=== PATIENT | male | born 1970 | race American Indian/Alaskan Native ===

== ENCOUNTER 2021-04-22 14:42 | Inpatient (IN) | payer OTHER ==
--- NOTE | 2021-04-22 17:51 | Event Note ---
ED Screening Note Date of service: 04/22/21 Time: 17:44 ED Screening Note: Patient presents to the ER today with complaints of left upper extremity weakness, dizziness and feeling off balance, and feels like he about to pass out when he stands up to walk and slurred speech. Onset of symptoms was 3 days ago. Patient states that he did come 3 days ago because he thought that the symptoms would go away. He denies any pain. Past medical history significant only for hypertension. 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 Patient out of the window to call code stroke, he will need a stroke work-up. Dr Arroyo and Dr [place] notified. This initial assessment/diagnostic orders/clinical plan/treatment(s) is/are subject to change based on patients health status, clinical progression and re- assessment by fellow clinical providers in the ED. Further treatment and workup at subsequent clinical providers discretion. Patient/guardian urged not to elope from the ED as their condition may be serious if not clinically assessed and managed. Initial orders include: Stroke work-up
[2021-04-22 18:23] LABS: Basophils % (Auto) 0.5 % (0.0-1.8); Eosinophils % (Auto) 0.3 % (0.0-4.3); Hematocrit 49.1 % (35.5-45.6); Hemoglobin 17.2 gm/dl (11.8-15.2); Lymphocytes # (Auto) 1.1 K/mm3 (1.2-5.4); Lymphocytes % (Auto) 25.6 % (13.4-35.0); Mean Corpuscular HGB Conc 35 % (32-34); Mean Corpuscular Volume 89 fl (84-94); Monocytes # (Auto) 0.3 K/mm3 (0.0-0.8); Monocytes % (Auto) 6.7 % (0.0-7.3); Platelet Count 185 K/mm3 (140-440); Red Blood Count 5.54 M/mm3 (3.65-5.03); Red Cell Distribution Width 14.1 % (13.2-15.2)
[2021-04-22 18:32] LABS: Creatine Kinase MB 5.4 ng/mL (0.0-4.0)
[2021-04-22 18:34] LABS: Alanine Aminotransferase 14 units/L (7-56); Albumin 4.4 g/dL (3.9-5); BUN/Creatinine Ratio 15; Blood Urea Nitrogen 15 mg/dL (9-20); Calcium 9.8 mg/dL (8.4-10.2); Hemolysis Index 10
[2021-04-22 18:42] LABS: INR 0.92 (0.87-1.13)
[2021-04-22 18:43] LABS: Partial Thromboplastin Time 29.1 Sec. (24.2-36.6); Thrombin Time 18.4 Sec. (15.1-19.6)
--- NOTE | 2021-04-22 18:54 | Cat Scan Report ---
CT head/brain wo con INDICATION / CLINICAL INFORMATION: 51 years Male; Stroke symptoms. TECHNIQUE: Routine CT head without contrast. All CT scans at this location are performed using CT dos e reduction for ALARA by means of automated exposure control. COMPARISON: None. FINDINGS: BRAIN / INTRACRANIAL CONTENTS: The motion degrades the image quality. However, there appears be mild cerebral white matter disease most notably involving the periventricular regions and most consistent with microvascular angiopathy. The decreased attenuation projected along the right paramedian natasha ma y be related to beam hardening artifact or degree of motion though correlation would be needed given the history of unspecified "stroke symptoms". The ventricular system is appropriate in size and configuration. There is relative uniform increased attenuation within the vascular structures which may reflect hemoconcentration. There is no clear CT evidence of acute intracranial hemorrhage or significant mass effect. ORBITS: No significant abnormality of visualized orbits. SINUSES / MASTOIDS: No significant abnormality in the visualized paranasal sinuses or mastoid air chinmay ls. CRANIOCERVICAL JUNCTION: No significant abnormality. ADDITIONAL FINDINGS: None. IMPRESSION: 1. There is microvascular angiopathy as detailed above without clear CT evidence of acute intracrania l hemorrhage. Signer Name: Roosevelt Huntley MD Signed: 04/22/2021 6:49 PM Workstation Name: [id number]
[2021-04-22] MEDS ORDERED: ASPIRIN 325 MG TAB PO ONE (23:42)
--- NOTE | 2021-04-23 00:22 | Emergency Department Report ---
ED Neuro Deficit HPI - General Chief Complaint: Neuro Symptoms/Deficit Stated Complaint: NUMBNESS ON LEFT SIDE Time Seen by Provider: 04/22/21 23:36 Source: patient Mode of arrival: Ambulatory Limitations: No Limitations - History of Present Illness Initial Comments: Patient is a 51-year-old F [place] male with past medical history hypertension who is presenting with 3 days of stroke symptoms. Patient states he first noted some difficulty speaking and weakness in his left arm 3 days ago. Patient states he did not come to the hospital because he was hoping the symptoms would go away. Denies chest pain shortness of breath fevers chills nausea vomiting cough cold or congestion. - Related Data Home Medications: Home Medications Medication Instructions Recorded Confirmed Last Taken amLODIPine [Norvasc] 5 mg PO DAILY 04/23/21 04/23/21 Unknown minoxidiL [Loniten] 10 mg PO BID 04/23/21 04/23/21 Unknown Allergies/Adverse Reactions: Allergies Allergy/AdvReac Type Severity Reaction Status Date / Time No Known Allergies Allergy Unverified 04/22/21 17:44 ED Review of Systems ROS: Stated complaint: NUMBNESS ON LEFT SIDE Other details as noted in HPI Comment: All other systems reviewed and negative ED Past Medical Hx - Past Medical History Previous Medical History?: Yes Hx Heart Attack/AMI: Yes - Surgical History Past Surgical History?: No Additional Surgical History: denies - Medications Home Medications: Home Medications Medication Instructions Recorded Confirmed Last Taken Type amLODIPine [Norvasc] 5 mg PO DAILY 04/23/21 04/23/21 Unknown History minoxidiL [Loniten] 10 mg PO BID 04/23/21 04/23/21 Unknown History ED Neuro Physical Exam - General Limitations: No Limitations General appearance: alert, in no apparent distress Suspected Stroke: Yes - Head Head exam: Present: atraumatic, normocephalic - Eye Eye exam: Present: normal appearance, PERRL, EOMI - ENT ENT exam: Present: mucous membranes moist - Neck Neck exam: Present: normal inspection - Respiratory Respiratory exam: Present: normal lung sounds bilaterally. Absent: respiratory distress, wheezes, rales, rhonchi - Cardiovascular Cardiovascular Exam: Present: regular rate, normal rhythm, normal heart sounds. Absent: systolic murmur, diastolic murmur, rubs, gallop - GI/Abdominal GI/Abdominal exam: Present: soft, normal bowel sounds. Absent: distended, tenderness, guarding, rebound (Letter now improved.) - Rectal Rectal exam: Present: deferred - Extremities Exam Extremities exam: Present: normal inspection - Back Exam Back exam: Present: normal inspection - Neurological Exam Neurological exam: Present: alert, oriented X3, CN II-XII intact - NIHSS Assessment Interval: Baseline 1a. Level of Consciousness: alert/keenly responsive 1b. LOC Questions: answers both correctly 1c. LOC Commands: performs tasks correctly 2. Best Gaze: normal 3. Visual: no visual loss 4. Facial Palsy: normal symmetrical movement 5b. Motor Arm Right: no drift 5a. Motor Arm Left: drift 6a. Motor Leg Left: no drift 6b. Motor Leg Right: no drift 7. Limb Ataxia: absent 8. Sensory: normal 9. Best Language: mild/moderate aphasia 10. Dysarthria: mild/moderate dysarthria 11. Extinction/Inattention: no abnormality Total Score: 3 Stroke Severity: Minor Stroke - Psychiatric Psychiatric exam: Present: normal affect, normal mood - Skin Skin exam: Present: warm, dry, intact, normal color. Absent: rash ED Course Vital Signs 04/22/21 04/22/21 04/23/21 17:40 23:56 00:22 Temperature 98.1 F 98.1 F Pulse Rate 91 H 80 80 Respiratory 18 20 Rate Blood Pressure 196/118 212/126 Blood Pressure 212/126 [Right] O2 Sat by Pulse 98 97 Oximetry 04/23/21 04/23/21 00:29 00:30 Temperature Pulse Rate 78 80 Respiratory 12 16 Rate Blood Pressure Blood Pressure [Right] O2 Sat by Pulse 97 97 Oximetry - Reevaluation(s) Reevaluation #1: 04/23/21 00:21 Patient states he has been compliant with his blood pressure regimen however blood pressure was elevated on arrival. By time the patient was able to be placed in a room systolic was greater than 200. Given labetalol. Also start the patient on aspirin therapy. - Lab Data Result diagrams: 04/22/21 18:01 04/22/21 18:01 Lab Results 04/22/21 04/22/21 04/22/21 Range/Units 17:43 18:01 18:01 WBC 4.5 (4.5-11.0) K/mm3 RBC 5.54 H (3.65-5.03) M/mm3 Hgb 17.2 H (11.8-15.2) gm/dl Hct 49.1 H (35.5-45.6) % MCV 89 (84-94) fl MCH 31 (28-32) pg MCHC 35 H (32-34) % RDW 14.1 (13.2-15.2) % Plt Count 185 (140-440) K/mm3 Lymph % (Auto) 25.6 (13.4-35.0) % Vigo % (Auto) 6.7 (0.0-7.3) % Eos % (Auto) 0.3 (0.0-4.3) % Baso % (Auto) 0.5 (0.0-1.8) % Lymph # (Auto) 1.1 L (1.2-5.4) K/mm3 Vigo # (Auto) 0.3 (0.0-0.8) K/mm3 Eos # (Auto) 0.0 (0.0-0.4) K/mm3 Baso # (Auto) 0.0 (0.0-0.1) K/mm3 Seg Neutrophils % 66.9 (40.0-70.0) % Seg Neutrophils # 3.0 (1.8-7.7) K/mm3 PT 13.0 (12.2-14.9) Sec. INR 0.92 (0.87-1.13) APTT 29.1 (24.2-36.6) Sec. Thrombin Time 18.4 (15.1-19.6) Sec. Sodium (137-145) mmol/L Potassium (3.6-5.0) mmol/L Chloride (98-107) mmol/L Carbon Dioxide (22-30) mmol/L Anion Gap mmol/L BUN (9-20) mg/dL Creatinine (0.8-1.3) mg/dL Estimated GFR ml/min BUN/Creatinine Ratio % Glucose (75-100) mg/dL POC Glucose 89 (70-105) mg/dL Calcium (8.4-10.2) mg/dL Total Bilirubin (0.1-1.2) mg/dL AST (5-40) units/L ALT (7-56) units/L Alkaline Phosphatase (35-129) units/L Total Creatine Kinase (55-170) units/L CK-MB (CK-2) (0.0-4.0) ng/mL CK-MB (CK-2) Rel Index (0-4) Troponin T (0.00-0.029) ng/mL Total Protein (6.3-8.2) g/dL Albumin (3.9-5) g/dL Albumin/Globulin Ratio % 04/22/ Range/Units 18:01 WBC (4.5-11.0) K/mm3 RBC (3.65-5.03) M/mm3 Hgb (11.8-15.2) gm/dl Hct (35.5-45.6) % MCV (84-94) fl MCH (28-32) pg MCHC (32-34) % RDW (13.2-15.2) % Plt Count (140-440) K/mm3 Lymph % (Auto) (13.4-35.0) % Vigo % (Auto) (0.0-7.3) % Eos % (Auto) (0.0-4.3) % Baso % (Auto) (0.0-1.8) % Lymph # (Auto) (1.2-5.4) K/mm3 Vigo # (Auto) (0.0-0.8) K/mm3 Eos # (Auto) (0.0-0.4) K/mm3 Baso # (Auto) (0.0-0.1) K/mm3 Seg Neutrophils % (40.0-70.0) % Seg Neutrophils # (1.8-7.7) K/mm3 PT (12.2-14.9) Sec. INR (0.87-1.13) APTT (24.2-36.6) Sec. Thrombin Time (15.1-19.6) Sec. Sodium 140 (137-145) mmol/L Potassium 4.1 (3.6-5.0) mmol/L Chloride 103.4 (98-107) mmol/L Carbon Dioxide 29 (22-30) mmol/L Anion Gap 12 mmol/L BUN 15 (9-20) mg/dL Creatinine 1.0 (0.8-1.3) mg/dL Estimated GFR > 60 ml/min BUN/Creatinine Ratio 15 % Glucose 97 (75-100) mg/dL POC Glucose (70-105) mg/dL Calcium 9.8 (8.4-10.2) mg/dL Total Bilirubin 1.00 (0.1-1.2) mg/dL AST 17 (5-40) units/L ALT 14 (7-56) units/L Alkaline Phosphatase 72 (35-129) units/L Total Creatine Kinase 99 (55-170) units/L CK-MB (CK-2) 5.4 H (0.0-4.0) ng/mL CK-MB (CK-2) Rel Index 5.4 H (0-4) Troponin T < 0.010 (0.00-0.029) ng/mL Total Protein 7.3 (6.3-8.2) g/dL Albumin 4.4 (3.9-5) g/dL Albumin/Globulin Ratio 1.5 % - Radiology Data [facility] [address] [place] [address] Cat Scan Report Signed Patient: LEIA ESTEBAN MR#: [id number] 73 : 1970 Acct:[id number] Age/Sex: 51 / M ADM Date: 04/22/21 Loc: ED Attending Dr: Ordering Physician: EDWARDO DANIELS Date of Service: 04/22/21 Procedure(s): CT head/brain wo con Accession Number(s): [id number] cc: EDWARDO DANIELS CT head/brain wo con INDICATION / CLINICAL INFORMATION: 51 years Male; Stroke symptoms. TECHNIQUE: Routine CT head without contrast. All CT scans at this location are performed using CT dose reduction for ALARA by means of automated exposure control. COMPARISON: None. FINDINGS: BRAIN / INTRACRANIAL CONTENTS: The motion degrades the image quality. However, there appears be mild cerebral white matter disease most notably involving the periventricular regions and most consistent with microvascular angiopathy. The decreased attenuation projected along the right paramedian natasha may be related to beam hardening artifact or degree of motion though correlation would be needed given the history of unspecified "stroke symptoms". The ventricular system is appropriate in size and configuration. There is relative uniform increased attenuation within the vascular structures which may reflect hemoconcentration. There is no clear CT evidence of acute intracranial hemorrhage or significant mass effect. ORBITS: No significant abnormality of visualized orbits. SINUSES / MASTOIDS: No significant abnormality in the visualized paranasal sinuses or mastoid air cells. CRANIOCERVICAL JUNCTION: No significant abnormality. ADDITIONAL FINDINGS: None. IMPRESSION: 1. There is microvascular angiopathy as detailed above without clear CT evidence of acute intracranial hemorrhage. Signer Name: Roosevelt Huntley MD Signed: 04/22/2021 6:49 PM Workstation Name: [id number] Transcribed By: MR Dictated By: Roosevelt Huntley MD Electronically Authenticated By: Roosevelt Huntley MD Signed Date/Time: 04/22/21 1849 - Medical Decision Making Walk patient is a 51-year-old F [place] male who is presenting with some difficulty speaking and left arm weakness. Patient also had elevated blood pressure on arrival. Symptoms been present for approximately 3 days and a code stroke was not initiated since he was outside of the window for TPA and thrombolysis. Patient admitted for further evaluation Critical care attestation.: If time is entered above; I have spent that time in minutes in the direct care of this critically ill patient, excluding procedure time. ED Disposition Clinical Impression: CVA (cerebral vascular accident), Hypertensive urgency, malignant Disposition: ADMITTED INPATIENT Is pt being admited?: Yes Does the pt Need Aspirin: No Condition: Stable Time of Disposition: 00:54
[2021-04-23] MEDS ORDERED: MAGNESIUM HYDROXIDE (MOM) ORAL LIQD UDC PO PRN ×2 (01:41)
[2021-04-23] MEDS ORDERED: PROMETHAZINE 25 MG RECT SUPP PR PRN (01:41)
[2021-04-23] MEDS ORDERED: MORPHINE 4 MG/1 ML INJ IV PRN (01:41)
[2021-04-23] MEDS ORDERED: ACETAMINOPHEN 325 MG TAB PO PRN (01:41)
[2021-04-23] MEDS ORDERED: METOCLOPRAMIDE 10 MG TAB PO PRN (01:41)
[2021-04-23] MEDS ORDERED: ONDANSETRON 4 MG/2 ML INJ IV PRN ×2 (01:41)
--- NOTE | 2021-04-23 01:54 | History and Physical Report ---
History of Present Illness Date of examination: 04/23/21 Date of admission: 04/23/2021 Chief complaint: Left arm weakness History of present illness: 51-year-old -French male with known history of hypertension presenting to the emergency room today complaining of weakness on the left and slurred speech over the past 3 days. Denies any headache or dizziness, denies any blurry vision and no diaphoresis. Denies any fever or chills, no chest pain or shortness of breath, no nausea vomiting and no abdominal pain. Patient states that was hoping that his symptoms will disappear and therefore did not bother coming to the hospital for evaluation. He also admits that he has not been quite compliant with his blood pressure medications. Upon arrival in the emergency room today blood pressure was elevated with systolic in the 190s and diastolic in the 80s. He was given some IV labetalol in the emergency room. Work-up today, CT of the head reveals microvascular angiopathy. No clear evidence of acute intracranial hemorrhage. Patient is being admitted for CVA evaluation. Past History Past Medical History: acute HI, hypertension Past Surgical History: No surgical history Social history: alcohol abuse (Drinks alcohol occasionally) Family history: no significant family history Medications and Allergies Allergies Allergy/AdvReac Type Severity Reaction Status Date / Time No Known Allergies Allergy Verified 04/23/21 01:57 Home Medications Medication Instructions Recorded Confirmed Last Taken Type amLODIPine [Norvasc] 5 mg PO DAILY 04/23/21 04/23/21 Unknown History minoxidiL [Loniten] 10 mg PO BID 04/23/21 04/23/21 Unknown History Active Meds: Active Medications Acetaminophen (Acetaminophen 325 Mg Tab) 650 mg PO Q4H PRN PRN Reason: Pain MILD(1-3)/Fever >100.5/MONTIEL Acetaminophen (Acetaminophen 325 Mg Tab) 650 mg PO Q4H PRN PRN Reason: Pain, Mild (1-3) Aspirin (Aspirin 325 Mg Tab) 325 mg PO QDAY LES Atorvastatin Calcium (Atorvastatin 40 Mg Tab) 40 mg PO QHS LES Bisacodyl (Bisacodyl 10 Mg Rect Supp) 10 mg IN QDAY PRN PRN Reason: Constipation Heparin Sodium (Porcine) (Heparin 5,000 Unit/1 Ml Vial) 5,000 unit SUB-Q Q8HR LES Magnesium Hydroxide (Magnesium Hydroxide (Mom) Oral Liqd Udc) 30 ml PO Q4H PRN PRN Reason: Constipation Magnesium Hydroxide (Magnesium Hydroxide (Mom) Oral Liqd Udc) 30 ml PO Q4H PRN PRN Reason: Constipation Metoclopramide HCl (Metoclopramide 10 Mg Tab) 10 mg PO Q6H PRN PRN Reason: Nausea And Vomiting Morphine Sulfate (Morphine 2 Mg/1 Ml Inj) 2 mg IV Q4H PRN PRN Reason: Pain, Moderate (4-6) Morphine Sulfate (Morphine 4 Mg/1 Ml Inj) 4 mg IV Q4H PRN PRN Reason: Pain , Severe (7-10) Ondansetron HCl (Ondansetron 4 Mg/2 Ml Inj) 4 mg IV Q8H PRN PRN Reason: Nausea And Vomiting Ondansetron HCl (Ondansetron 4 Mg/2 Ml Inj) 4 mg IV Q8H PRN PRN Reason: Nausea And Vomiting Promethazine HCl (Promethazine 25 Mg Rect Supp) 25 mg IN Q6H PRN PRN Reason: Nausea And Vomiting Sodium Chloride (Sodium Chloride 0.9% 10 Ml Flush Syringe) 10 ml IV BID LES Sodium Chloride (Sodium Chloride 0.9% 10 Ml Flush Syringe) 10 ml IV PRN PRN PRN Reason: LINE FLUSH Sodium Chloride (Sodium Chloride 0.9% 10 Ml Flush Syringe) 10 ml INJ PRN PRN PRN Reason: LINE FLUSH Review of Systems Constitutional: no fever, no chills Ears, nose, mouth and throat: no nasal congestion, no sore throat Cardiovascular: no chest pain, no palpitations Respiratory: no cough, no shortness of breath Gastrointestinal: no abdominal pain, no nausea, no vomiting, no diarrhea Genitourinary Male: no dysuria, no hematuria, no flank pain, no nocturia Musculoskeletal: no neck pain, no low back pain Integumentary: no rash, no pruritis Neurological: no headaches, no confusion Psychiatric: no anxiety, no depression Endocrine: no polyphagia, no polydipsia, no polyuria, no nocturia Exam - Constitutional Vitals: Temp Pulse Resp BP Pulse Ox 98.1 F 80 16 185/120 97 04/22/21 23:56 04/23/21 01:30 04/23/21 01:30 04/23/21 01:30 04/23/21 01:30 General appearance: Present: no acute distress, well-nourished - EENT Eyes: Present: PERRL, EOM intact. Absent: scleral icterus ENT: hearing intact, clear oral mucosa, dentition normal - Neck Neck: Present: supple, normal ROM - Respiratory Respiratory effort: normal Respiratory: bilateral: CTA - Cardiovascular Rhythm: regular Heart Sounds: Present: S1 & S2. Absent: gallop, systolic murmur, diastolic murmur, rub, click - Extremities Extremities: no ischemia, pulses intact, pulses symmetrical, No edema, Full ROM Peripheral Pulses: within normal limits - Abdominal General gastrointestinal: Present: soft, non-tender, non-distended, normal bowel sounds. Absent: mass - Integumentary Integumentary: Present: clear, warm, dry. Absent: rash - Musculoskeletal Musculoskeletal: left sided weakness (Weakness in the left upper extremity) - Psychiatric Psychiatric: appropriate mood/affect, intact judgment & insight, memory intact, cooperative - Neurologic Neurologic: CNII-XII intact, no focal deficits, moves all extremities, other (Strength in the left upper extremity 2/5, strength in right upper, right lower, left lower extremities 5/5.) HEART Score - HEART Score Troponin: Troponin T < 0.010 ng/mL (0.00-0.029) 04/22/21 18:01 Results - Labs CBC & Chem 7: 04/22/21 18:01 04/22/21 18:01 Labs: Abnormal lab results 04/22/21 04/22/21 Range/Units 18:01 18:01 RBC 5.54 H (3.65-5.03) M/mm3 Hgb 17.2 H (11.8-15.2) gm/dl Hct 49.1 H (35.5-45.6) % MCHC 35 H (32-34) % Lymph # (Auto) 1.1 L (1.2-5.4) K/mm3 CK-MB (CK-2) 5.4 H (0.0-4.0) ng/mL CK-MB (CK-2) Rel Index 5.4 H (0-4) Assessment and Plan - Patient Problems (1) CVA (cerebral vascular accident) Current Visit: Yes Status: Acute Plan to address problem: Patient admitted distant telemetry. We will commence patient on daily aspirin and statin. Patient be scheduled for echocardiogram, carotid Doppler and MRI of the brain. Neurology evaluation requested. (2) Hypertensive urgency, malignant Current Visit: Yes Status: Acute Plan to address problem: We will resume routine home medications and monitor vital signs closely. (3) Noncompliance with medication regimen Current Visit: Yes Status: Acute Plan to address problem: Patient counseled on compliance with medications. (4) DVT prophylaxis Current Visit: Yes Status: Acute Plan to address problem: Patient placed on subcutaneous heparin. (5) Full code status Current Visit: Yes Status: Acute Plan to address problem: Patient is full code.
[2021-04-23] MEDS ORDERED: hydrALAZINE 20 MG/1 ML INJ IV PRN (05:46)
[2021-04-23] MEDS: HEPARIN 5,000 UNIT/1 ML VIAL SUB-Q SCH ×3 (08:00→22:12)
--- NOTE | 2021-04-23 08:47 | Event Note ---
Date: 04/23/21 This is a follow-up from an admission earlier this morning. Patient seen and examined. We will continue to plan as outlined in H&P. Patient reported noncompliance with hypertensive medication for approximately 6 months. Patient reports that he has recently moved to this area and does not have a PCP. On exam, patient with left pronator drift and left upper extremity weakness. Await neurology consultation. Total visit time equals 35 minutes with greater than 50% spent on coordination of care and counseling
--- NOTE | 2021-04-23 09:06 | Consultation ---
History of Present Illness Consult date: 04/23/21 Reason for Consult: Left arm weakness and slurred speech for 3 days History of present illness: Left arm weakness History of present illness: 51-year-old -[place] male with known history of hypertension presenting to the emergency room today complaining of weakness on the left and slurred speech over the past 3 days. Denies any headache or dizziness, denies any blurry vision and no diaphoresis. Denies any fever or chills, no chest pain or shortness of breath, no nausea vomiting and no abdominal pain. Patient states that was hoping that his symptoms will disappear and therefore did not bother coming to the hospital for evaluation. He also admits that he has not been quite compliant with his blood pressure medications take it on PRN basis Upon arrival in the emergency room today blood pressure was elevated with systolic in the 190s and diastolic in the 80s. He was given some IV labetalol in the emergency room. Work-up today, CT of the head reveals microvascular angiopathy. No clear eviden ce of acute intracranial hemorrhage. Patient is being admitted for CVA evaluation. Today BP 216/140 MRI brain is noted Echo is pending Lipid profil is pending Past History Past Medical History: acute PA, hypertension Past Surgical History: No surgical history Social history: alcohol abuse (Drinks alcohol occasionally) Family history: no significant family history Medications and Allergies Allergies Allergy/AdvReac Type Severity Reaction Status Date / Time No Known Allergies Allergy Verified 04/23/21 01:57 Home Medications Medication Instructions Recorded Confirmed Last Taken Type amLODIPine [Norvasc] 5 mg PO DAILY 04/23/21 04/23/21 Unknown History minoxidiL [Loniten] 10 mg PO BID 04/23/21 04/23/21 Unknown History Active Meds: Active Medications Acetaminophen (Acetaminophen 325 Mg Tab) 650 mg PO Q4H PRN PRN Reason: Pain MILD(1-3)/Fever >100.5/MONTIEL Acetaminophen (Acetaminophen 325 Mg Tab) 650 mg PO Q4H PRN PRN Reason: Pain, Mild (1-3) Aspirin (Aspirin 325 Mg Tab) 325 mg PO QDAY LES Atorvastatin Calcium (Atorvastatin 40 Mg Tab) 40 mg PO QHS LES Bisacodyl (Bisacodyl 10 Mg Rect Supp) 10 mg OH QDAY PRN PRN Reason: Constipation Heparin Sodium (Porcine) (Heparin 5,000 Unit/1 Ml Vial) 5,000 unit SUB-Q Q8HR LES Magnesium Hydroxide (Magnesium Hydroxide (Mom) Oral Liqd Udc) 30 ml PO Q4H PRN PRN Reason: Constipation Magnesium Hydroxide (Magnesium Hydroxide (Mom) Oral Liqd Udc) 30 ml PO Q4H PRN PRN Reason: Constipation Metoclopramide HCl (Metoclopramide 10 Mg Tab) 10 mg PO Q6H PRN PRN Reason: Nausea And Vomiting Morphine Sulfate (Morphine 2 Mg/1 Ml Inj) 2 mg IV Q4H PRN PRN Reason: Pain, Moderate (4-6) Morphine Sulfate (Morphine 4 Mg/1 Ml Inj) 4 mg IV Q4H PRN PRN Reason: Pain , Severe (7-10) Ondansetron HCl (Ondansetron 4 Mg/2 Ml Inj) 4 mg IV Q8H PRN PRN Reason: Nausea And Vomiting Ondansetron HCl (Ondansetron 4 Mg/2 Ml Inj) 4 mg IV Q8H PRN PRN Reason: Nausea And Vomiting Promethazine HCl (Promethazine 25 Mg Rect Supp) 25 mg OH Q6H PRN PRN Reason: Nausea And Vomiting Sodium Chloride (Sodium Chloride 0.9% 10 Ml Flush Syringe) 10 ml IV BID LES Sodium Chloride (Sodium Chloride 0.9% 10 Ml Flush Syringe) 10 ml IV PRN PRN PRN Reason: LINE FLUSH Sodium Chloride (Sodium Chloride 0.9% 10 Ml Flush Syringe) 10 ml INJ PRN PRN PRN Reason: LINE FLUSH Review of Systems Constitutional: no fever, no chills Ears, nose, mouth and throat: no nasal congestion, no sore throat Cardiovascular: no chest pain, no palpitations Respiratory: no cough, no shortness of breath Gastrointestinal: no abdominal pain, no nausea, no vomiting, no diarrhea Genitourinary Male: no dysuria, no hematuria, no flank pain, no nocturia Musculoskeletal: no neck pain, no low back pain Integumentary: no rash, no pruritis Neurological: no headaches, no confusion Psychiatric: no anxiety, no depression Endocrine: no polyphagia, no polydipsia, no polyuria, no nocturia Past History Past Medical History: acute PA, hypertension Past Surgical History: No surgical history Social history: alcohol abuse (Drinks alcohol occasionally) Family history: no significant family history Medications and Allergies Allergies Allergy/AdvReac Type Severity Reaction Status Date / Time No Known Allergies Allergy Verified 04/23/21 01:57 Home Medications Medication Instructions Recorded Confirmed Last Taken Type amLODIPine [Norvasc] 5 mg PO DAILY 04/23/21 04/23/21 Unknown History minoxidiL [Loniten] 10 mg PO BID 04/23/21 04/23/21 Unknown History Active Meds: Active Medications Acetaminophen (Acetaminophen 325 Mg Tab) 650 mg PO Q4H PRN PRN Reason: Pain MILD(1-3)/Fever >100.5/MONTIEL Amlodipine Besylate (Amlodipine 5 Mg Tab) 5 mg PO DAILY [facility] Aspirin (Aspirin 325 Mg Tab) 325 mg PO QDAY [facility] Atorvastatin Calcium (Atorvastatin 40 Mg Tab) 40 mg PO QHS [facility] Bisacodyl (Bisacodyl 10 Mg Rect Supp) 10 mg OH QDAY PRN PRN Reason: Constipation Heparin Sodium (Porcine) (Heparin 5,000 Unit/1 Ml Vial) 5,000 unit SUB-Q Q8HR [facility] Last Admin: 04/23/21 08:00 Dose: 5,000 unit Documented by: Hydralazine HCl (Hydralazine 20 Mg/1 Ml Inj) 10 mg IV Q4HR PRN PRN Reason: Blood Pressure Magnesium Hydroxide (Magnesium Hydroxide (Mom) Oral Liqd Udc) 30 ml PO Q4H PRN PRN Reason: Constipation Metoclopramide HCl (Metoclopramide 10 Mg Tab) 10 mg PO Q6H PRN PRN Reason: Nausea And Vomiting Minoxidil (Minoxidil 10 Mg Tab) 10 mg PO BID [facility] Morphine Sulfate (Morphine 2 Mg/1 Ml Inj) 2 mg IV Q4H PRN PRN Reason: Pain, Moderate (4-6) Morphine Sulfate (Morphine 4 Mg/1 Ml Inj) 4 mg IV Q4H PRN PRN Reason: Pain , Severe (7-10) Ondansetron HCl (Ondansetron 4 Mg/2 Ml Inj) 4 mg IV Q8H PRN PRN Reason: Nausea And Vomiting Promethazine HCl (Promethazine 25 Mg Rect Supp) 25 mg OH Q6H PRN PRN Reason: Nausea And Vomiting Sodium Chloride (Sodium Chloride 0.9% 10 Ml Flush Syringe) 10 ml IV BID [facility] Sodium Chloride (Sodium Chloride 0.9% 10 Ml Flush Syringe) 10 ml IV PRN PRN PRN Reason: LINE FLUSH Physical Examination - Vital Signs Vital Signs: Vital Signs Temp Pulse Resp BP Pulse Ox 98.1 F 91 H 18 196/118 98 04/22/21 17:40 04/22/21 17:40 04/22/21 17:40 04/22/21 17:40 04/22/21 17:40 - Constitutional General appearance: comfortable - EENT EENT: Present: PERRL, mucous membranes moist - Respiratory Respiratory: Present: chest non-tender, lungs clear, rhonchi - Cardiovascular Cardiovascular: Present: regular rate, normal S1, normal S2 Extremities: Present: no peripheral edema bilatateraly, no clubbing, cyanosis - Gastrointestinal Gastrointestinal: Present: normoactive bowel sounds - Integumentary Integumentary: Present: normal - Neurologic Cranial nerve examination: PERRL, EOMI, other (left facial droop no visual field deficit) Detailed motor examination: other (right side 4/5 left upper and lower 1-2/5 , planter is equivical on left no sensory deficit ,unable to walk ) - Level of Consciousness 1a. Level of Consciousness: alert/keenly responsive - LOC Questions 1b. LOC Questions: answers both correctly - LOC Command 1c. LOC Commands: performs tasks correctly - Best Gaze 2. Best Gaze: normal - Visual 3. Visual: no visual loss - Facial Palsy 4. Facial Palsy: minor paralysis - Motor Arm 5a. Motor Arm Left: no gravity effort 5b. Motor Arm Right: no drift - Motor Leg 6a. Motor Leg Left: no gravity effort 6b. Motor Leg Right: no drift - Limb Ataxia 7. Limb Ataxia: absent - Sensory 8. Sensory: normal - Best Language 9. Best Language: no aphasia - Dysarthria 10. Dysarthria: normal - Extinction and Inattention 11. Extinction/Inattention: no abnormality - Scoring Total Score: 7 Stroke Severity: Moderate Stroke Results - Laboratory Findings CBC and BMP: 04/22/21 18:01 04/22/21 18:01 Abnormal Lab Findings: Abnormal Labs 04/22/21 04/22/21 18:01 18:01 RBC 5.54 H Hgb 17.2 H Hct 49.1 H MCHC 35 H Lymph # (Auto) 1.1 L CK-MB (CK-2) 5.4 H CK-MB (CK-2) Rel Index 5.4 H Assessment and Plan Assessment and Plan - Patient Problems # CVA (cerebral vascular accident) -This is 51 ys old male with a new onset left side weakness X3days presented to ER for evaluation -pt. is not a candidate for TPA nor thrombectomy -[facility] today#7 -Ct brain is remarkable for angiopathic changes not specific -CTA brain is pending -LDL and A1C are pending -Echo is pending -He is in NSR -BP#216/140 -MRI brain is suggestive of right Aurelio infarct ,with possibility of basilar a. thrombus can not be excluded -telemetry -ASA 325 Plus Plavix 75 mg started -Lipitor 40 mg -PT,ST evaluate -Most likley will need Rehab evaluation. # Hypertensive urgency, malignant -We will resume routine home medications and monitor vital signs closely. -BP<150/80 gradual control # Noncompliance with medication regimen -Patient counseled on compliance with medications. # DVT prophylaxis -Patient placed on subcutaneous heparin. # Full code status -Patient is full code.
--- NOTE | 2021-04-23 09:50 | Magnetic Resonance Report ---
EXAM: MR Head Without Intravenous Contrast CLINICAL HISTORY: Stroke. Slurred speech. TECHNIQUE: Magnetic resonance images of the head/brain without intravenous contrast in multiple planes. COMPARISON: CT head from 04/22/2021. FINDINGS: Brain: Restricted diffusion seen within the right central natasha. Abnormal signal seen in the basilar artery flow void on image 10 of series 4. Periventricular and centrum semiovale T2 white matter hyp erintensities most consistent with sequela of chronic microvascular disease. No hemorrhage. No hydro cephalus. Sinuses and mastoid air cells: Essentially clear. Orbits: No significant abnormality visualized. IMPRESSION: - Acute right central natasha stroke. Abnormal signal in the basilar artery which is concerning for thro mbus given the infarction, although artifact is also possible. Recommend CTA head and neck for furthe r evaluation. I informed nurse who is taking care of this patient via telephone at [phone]. Signer Name: Kal Cook MD Signed: 04/23/2021 9:45 AM Workstation Name: [id number]
[2021-04-23] MEDS: amLODIPine 5 MG TAB PO SCH (10:28)
[2021-04-23] MEDS: ASPIRIN 325 MG TAB PO SCH (10:29)
[2021-04-23] MEDS: MORPHINE 2 MG/1 ML INJ IV PRN (10:29)
[2021-04-23] MEDS: MINOXIDIL 10 MG TAB PO SCH ×2 (10:53→22:11)
--- NOTE | 2021-04-23 12:30 | Vascular Lab Report ---
DUPLEX DOPPLER ULTRASOUND CAROTID, BILATERAL INDICATION / CLINICAL INFORMATION: stroke. COMPARISON: None available. FINDINGS: RIGHT CAROTID: Minimal soft plaque at the carotid bulb - PLAQUE ESTIMATE (%): < 50% - CCA velocity: 122 cm/sec. - ICA peak systolic velocity: 73 cm/sec. - ICA/CCA PSV Ratio: Less than 2 Right Vertebral Artery: Antegrade flow. LEFT CAROTID: No significant atherosclerotic disease - PLAQUE ESTIMATE (%): None. - CCA velocity: 116 cm/sec. - ICA peak systolic velocity: 108 cm/sec. - ICA/CCA PSV Ratio: Less than 2 Left Vertebral Artery: Antegrade flow. IMPRESSION: 1. Right Internal Carotid Artery: Less than 50% diameter stenosis. 2. Left Internal Carotid Artery: Less than 50% diameter stenosis. Velocity criteria are extrapolated from diameter data as defined by the Society of Radiologists in Ul trasound Consensus Conference, Radiology 2003; 229;340-346. NO STENOSIS (NORMAL) - Plaque = none; ICA PSV < 125 cm/sec; ICA/CCA PSV Ratio < 2.0 <50% STENOSIS - Plaque < 50%; ICA PSV < 125 cm/sec; ICA/CCA PSV Ratio < 2.0 50-69% STENOSIS - Plaque > 50%; ICA PSV = 125-230 cm/sec; ICA/CCA PSV Ratio = 2.0-4.0 >70% BUT <100% STENOSIS - Plaque > 50%; ICA PSV > 230 cm/sec; ICA/CCA PSV Ratio > 4.0 NEAR OCCLUSION - Plaque = visible lumen; ICA PSV = high/low/none; ICA/CCA PSV Ratio = variable TOTAL OCCLUSION - Plaque = no lumen; ICA PSV = none; ICA/CCA PSV Ratio = N/A Signer Name: Colt Figueroa Jr, MD Signed: 04/23/2021 12:25 PM Workstation Name: [id number]
[2021-04-23] MEDS: CLOPIDOGREL 75 MG TAB PO SCH (14:37)
--- NOTE | 2021-04-23 15:49 | Cat Scan Report ---
CTA NECK WITH CONTRAST 04/23/2021 INDICATION / CLINICAL INFORMATION: CVA OMNI 350 100 ML. COMPARISON: None. TECHNIQUE: Routine CTA of the neck is performed. 3-D/MIP reformats were postprocessed. Percentage st enosis is determined by direct quantitative measurements of diseased internal carotid artery diameter compared with normal distal internal carotid artery reference segments or by criteria similar to FILOMENA CET where applicable. All CT scans at this location are performed using CT dose reduction for ALARA b y means of automated exposure control. CONTRAST: 100 ml of Omnipaque 350 FINDINGS: Carotid bifurcations: There is no evidence of significant carotid bifurcation stenosis. Some atherosc lerotic irregularity is present at the origin of the internal carotid arteries bilaterally. Carotid arteries: No significant abnormality. Cervical vertebral arteries: No significant abnormality. Aortic arch: No significant abnormality. There is limited opacification of the upper internal jugular vein on the left side. It is unclear whe ther this represents evidence of partial thrombus or is flow/timing related. Depending on details of the clinical circumstances, this could be further evaluated with venous ultrasound, with special atte ntion to the upper cervical internal jugular vein on the left. IMPRESSION: No significant arterial vascular abnormality. Question of filling defect in the upper left internal jugular vein versus flow/timing related joel morse Signer Name: Thom Burgess MD Signed: 04/23/2021 3:44 PM Workstation Name: [id number]
--- NOTE | 2021-04-23 15:52 | Cat Scan Report ---
CTA HEAD WITH CONTRAST 04/23/2021 HISTORY: CVA OMNI 350 100 ML. COMPARISON: None. TECHNIQUE: All CT scans at this location are performed using CT dose reduction for ALARA by means of automated exposure control.. 3-D/MIP reformats postprocessed. Percentage stenosis is determined by d irect quantitative measurements of diseased internal carotid artery diameter compared with normal dis ashley internal carotid artery reference segments or by criteria similar to NASCET where applicable. CONTRAST: 100 ml of Omnipaque 350 FINDINGS: CTA HEAD: Intracranial vertebral arteries: Atherosclerotic irregularity is seen along the course of the vertebr al arteries, more prominently on the left. The left distal vertebral artery is relatively hypoplastic or stenotic on an atherosclerotic basis. Basilar artery: There is no evidence of basilar artery occlusion. However, atherosclerotic narrowing is present in the proximal basilar artery associated with 50-60% stenosis. Posterior cerebral arteries: No significant abnormality. Intracranial internal carotid arteries: No significant abnormality. Anterior cerebral arteries: No significant abnormality. Middle cerebral arteries: No significant abnormality. Dural venous sinuses:Not optimally opacified. No significant abnormality. Additional findings: None. IMPRESSION: 1. Minute basilar artery moderate narrowing. Signer Name: Thom Burgess MD Signed: 04/23/2021 3:47 PM Workstation Name: [id number]
[2021-04-23 16:27] LABS: Chol/HDL Ratio 3.78 %
[2021-04-24] MEDS: HEPARIN 5,000 UNIT/1 ML VIAL SUB-Q SCH ×3 (05:16→22:32)
[2021-04-24 05:54] LABS: Basophils % (Auto) 0.2 % (0.0-1.8); Eosinophils % (Auto) 0.2 % (0.0-4.3); Hematocrit 47.4 % (35.5-45.6); Hemoglobin 16.2 gm/dl (11.8-15.2); Lymphocytes # (Auto) 1.6 K/mm3 (1.2-5.4); Lymphocytes % (Auto) 22.1 % (13.4-35.0); Mean Corpuscular HGB Conc 34 % (32-34); Mean Corpuscular Volume 89 fl (84-94); Monocytes # (Auto) 0.6 K/mm3 (0.0-0.8); Monocytes % (Auto) 8.7 % (0.0-7.3); Platelet Count 185 K/mm3 (140-440); Red Blood Count 5.32 M/mm3 (3.65-5.03); Red Cell Distribution Width 14.4 % (13.2-15.2)
[2021-04-24 06:15] LABS: BUN/Creatinine Ratio 17; Blood Urea Nitrogen 19 mg/dL (9-20); Calcium 9.5 mg/dL (8.4-10.2); Hemolysis Index 8; INR 0.96 (0.87-1.13)
[2021-04-24] MEDS: ACETAMINOPHEN 325 MG TAB PO PRN (08:27)
--- NOTE | 2021-04-24 08:59 | XRay Report ---
CHEST 1 VIEW 04/24/2021 8:38 AM INDICATION / CLINICAL INFORMATION: fever. COMPARISON: None available. FINDINGS: SUPPORT DEVICES: None. HEART / MEDIASTINUM: No significant abnormality. LUNGS / PLEURA: No significant pulmonary or pleural abnormality. No pneumothorax. ADDITIONAL FINDINGS: No significant additional findings. IMPRESSION: 1. No acute findings. Signer Name: Sonu De León MD Signed: 04/24/2021 8:55 AM Workstation Name: [email or web address]
[2021-04-24] MEDS: MINOXIDIL 10 MG TAB PO SCH ×2 (10:32→22:31)
[2021-04-24] MEDS: amLODIPine 5 MG TAB PO SCH (10:32)
[2021-04-24] MEDS: ASPIRIN 325 MG TAB PO SCH (10:32)
[2021-04-24] MEDS: CLOPIDOGREL 75 MG TAB PO SCH (10:33)
--- NOTE | 2021-04-24 11:12 | Progress Note ---
Assessment and Plan Assessment and plan: Acute CVA. Accelerated hypertension. Medical noncompliance 04/24/2021. CT brain is remarkable for angiopathic changes but nonspecific. MRI is suggestive of right pontine infarct with possibility of basilar artery thrombus. Continue Lipitor, aspirin and Plavix per neurology recommendations. Echocardiogram and CTA brain is pending. Await PT/OT/ST evaluations. History Interval history: Patient with left upper extremity weakness. Hospitalist Physical - Constitutional Vitals: Temp Pulse Resp BP Pulse Ox 98.0 F 101 H 20 143/88 97 04/24/21 08:44 04/24/21 10:32 04/24/21 08:44 04/24/21 10:32 04/24/21 09:58 General appearance: Present: no acute distress, well-nourished - EENT Eyes: Present: PERRL, EOM intact ENT: hearing intact, clear oral mucosa, dentition normal - Neck Neck: Present: supple, normal ROM - Respiratory Respiratory effort: normal Respiratory: bilateral: CTA - Cardiovascular Rhythm: regular Heart Sounds: Present: S1 & S2. Absent: gallop, rub - Extremities Extremities: no ischemia, No edema, Full ROM - Abdominal General gastrointestinal: soft, non-tender, non-distended, normal bowel sounds - Integumentary Integumentary: Present: clear, warm, dry - Neurologic Neurologic: CNII-XII intact, moves all extremities HEART Score - HEART Score Troponin: Troponin T < 0.010 ng/mL (0.00-0.029) 04/22/21 18:01 Results - Labs CBC & Chem 7: 04/24/21 04:31 04/24/21 04:31 Labs: Laboratory Last Values WBC 7.1 K/mm3 (4.5-11.0) 04/24/21 04:31 RBC 5.32 M/mm3 (3.65-5.03) H 04/24/21 04:31 Hgb 16.2 gm/dl (11.8-15.2) H 04/24/21 04:31 Hct 47.4 % (35.5-45.6) H 04/24/21 04:31 MCV 89 fl (84-94) 04/24/21 04:31 MCH 30 pg (28-32) 04/24/21 04:31 MCHC 34 % (32-34) 04/24/21 04:31 RDW 14.4 % (13.2-15.2) 04/24/21 04:31 Plt Count 185 K/mm3 (140-440) 04/24/21 04:31 Lymph % (Auto) 22.1 % (13.4-35.0) 04/24/21 04:31 Pike % (Auto) 8.7 % (0.0-7.3) H 04/24/21 04:31 Eos % (Auto) 0.2 % (0.0-4.3) 04/24/21 04:31 Baso % (Auto) 0.2 % (0.0-1.8) 04/24/21 04:31 Lymph # (Auto) 1.6 K/mm3 (1.2-5.4) 04/24/21 04:31 Pike # (Auto) 0.6 K/mm3 (0.0-0.8) 04/24/21 04:31 Eos # (Auto) 0.0 K/mm3 (0.0-0.4) 04/24/21 04:31 Baso # (Auto) 0.0 K/mm3 (0.0-0.1) 04/24/21 04:31 Seg Neutrophils % 68.8 % (40.0-70.0) 04/24/21 04:31 Seg Neutrophils # 4.9 K/mm3 (1.8-7.7) 04/24/21 04:31 PT 13.3 Sec. (12.2-14.9) 04/24/21 04:31 INR 0.96 (0.87-1.13) 04/24/21 04:31 APTT 29.1 Sec. (24.2-36.6) 04/22/21 18:01 Thrombin Time 18.4 Sec. (15.1-19.6) 04/22/21 18:01 Sodium 142 mmol/L (137-145) 04/24/21 04:31 Potassium 3.3 mmol/L (3.6-5.0) L 04/24/21 04:31 Chloride 103.8 mmol/L (98-107) 04/24/21 04:31 Carbon Dioxide 27 mmol/L (22-30) 04/24/21 04:31 Anion Gap 15 mmol/L 04/24/21 04:31 BUN 19 mg/dL (9-20) 04/24/21 04:31 Creatinine 1.1 mg/dL (0.8-1.3) 04/24/21 04:31 Estimated GFR > 60 ml/min 04/24/21 04:31 BUN/Creatinine Ratio 17 % 04/24/21 04:31 Glucose 97 mg/dL (75-100) 04/24/21 04:31 POC Glucose 82 mg/dL (70-105) 04/23/21 12:36 Calcium 9.5 mg/dL (8.4-10.2) 04/24/21 04:31 Total Bilirubin 1.00 mg/dL (0.1-1.2) 04/22/21 18:01 AST 17 units/L (5-40) 04/22/21 18:01 ALT 14 units/L (7-56) 04/22/21 18:01 Alkaline Phosphatase 72 units/L (35-129) 04/22/21 18:01 Total Creatine Kinase 99 units/L (55-170) 04/22/21 18:01 CK-MB (CK-2) 5.4 ng/mL (0.0-4.0) H 04/22/21 18:01 CK-MB (CK-2) Rel Index 5.4 (0-4) H 04/22/21 18:01 Troponin T < 0.010 ng/mL (0.00-0.029) 04/22/21 18:01 Total Protein 7.3 g/dL (6.3-8.2) 04/22/21 18:01 Albumin 4.4 g/dL (3.9-5) 04/22/21 18:01 Albumin/Globulin Ratio 1.5 % 04/22/21 18:01 Triglycerides 157 mg/dL (2-149) H 04/22/21 18:01 Cholesterol 227 mg/dL (50-199) H 04/22/21 18:01 LDL Cholesterol Direct 156 mg/dL (50-130) H 04/22/21 18:01 HDL Cholesterol 60 mg/dL (40-59) H 04/22/21 18:01 Cholesterol/HDL Ratio 3.78 % 04/22/21 18:01 Johansen/IV: Voiding Method Toilet Active Medications - Current Medications Current Medications: Generic Name Dose Route Start Last Admin Trade Name Freq PRN Reason Stop Dose Admin Acetaminophen 650 mg 04/23/21 01:41 04/24/21 08:27 Acetaminophen 325 Mg Tab PO 650 mg Q4H PRN Administration Pain MILD(1-3)/Fever >100.5/MONTIEL Amlodipine Besylate 5 mg 04/23/21 10:00 04/24/21 10:32 Amlodipine 5 Mg Tab PO 5 mg DAILY LES Administration Aspirin 325 mg 04/23/21 10:00 04/24/21 10:32 Aspirin 325 Mg Tab PO 325 mg QDAY LES Administration Atorvastatin Calcium 80 mg 04/24/21 22:00 Atorvastatin 40 Mg Tab PO QHS LES Bisacodyl 10 mg 04/23/21 01:41 Bisacodyl 10 Mg Rect Supp DE QDAY PRN Constipation Clopidogrel Bisulfate 75 mg 04/23/21 14:30 04/24/21 10:33 Clopidogrel 75 Mg Tab PO 75 mg QDAY LES Administration Heparin Sodium (Porcine) 5,000 unit 04/23/21 06:00 04/24/21 05:16 Heparin 5,000 Unit/1 Ml Vial SUB-Q 5,000 unit Q8HR LES Administration Hydralazine HCl 10 mg 04/23/21 05:46 04/23/21 11:45 Hydralazine 20 Mg/1 Ml Inj IV 10 mg Q4HR PRN Administration Blood Pressure Magnesium Hydroxide 30 ml 04/23/21 01:41 Magnesium Hydroxide (Mom) Oral Liqd Udc PO Q4H PRN Constipation Metoclopramide HCl 10 mg 04/23/21 01:41 Metoclopramide 10 Mg Tab PO Q6H PRN Nausea And Vomiting Minoxidil 10 mg 04/23/21 10:00 04/24/21 10:32 Minoxidil 10 Mg Tab PO 10 mg BID LES Administration Morphine Sulfate 2 mg 04/23/21 01:41 04/23/21 10:29 Morphine 2 Mg/1 Ml Inj IV 2 mg Q4H PRN Administration Pain, Moderate (4-6) Morphine Sulfate 4 mg 04/23/21 01:41 04/24/21 10:33 Morphine 4 Mg/1 Ml Inj IV 4 mg Q4H PRN Administration Pain , Severe (7-10) Ondansetron HCl 4 mg 04/23/21 01:41 04/23/21 10:30 Ondansetron 4 Mg/2 Ml Inj IV 4 mg Q8H PRN Administration Nausea And Vomiting Promethazine HCl 25 mg 04/23/21 01:41 Promethazine 25 Mg Rect Supp DE Q6H PRN Nausea And Vomiting Sodium Chloride 10 ml 04/23/21 10:00 04/24/21 10:33 Sodium Chloride 0.9% 10 Ml Flush Syringe IV 10 ml BID LES Administration Sodium Chloride 10 ml 04/23/21 01:41 Sodium Chloride 0.9% 10 Ml Flush Syringe IV PRN PRN LINE FLUSH Nutrition/Malnutrition Assess - Dietary Evaluation Nutrition/Malnutrition Findings: Nutrition Notes Start: 04/23/21 11:34 Freq: Status: Active Protocol: Document 04/23/21 11:34 MELODIE (Rec: 04/23/21 11:35 MELODIE [id number]) Nutrition Notes Need for Assessment generated from: MD Order,Education Initial or Follow up Brief Note Current Diagnosis Hypertension,Stroke Other Pertinent Diagnosis medication noncompliance Current Diet cardiac Subjective/Other Information MD consult for diet education. Pt on hold in ED. Nutrition Intervention Follow-Up By: 04/27/21 Additional Comments F/u: diet edcuation
--- NOTE | 2021-04-24 12:10 | Progress Note ---
Assessment and Plan Assessment and Plan - Patient Problems # CVA (cerebral vascular accident) -This is 51 ys old male with a new onset left side weakness X3days presented to ER for evaluation -pt. is not a candidate for TPA nor thrombectomy -NIH today#7 -Ct brain is remarkable for angiopathic changes not specific -CTA brain and neck is suggestive of mild narrow basilar artery ,no thrombus,with small left vertebral A. -LDL#154 and A1C is pending -Echo is pending -He is in NSR -BP#216/140-- BP is better today 144/74,HR#111 Regular -MRI brain is suggestive of right Aurelio infarct ,with possibility of basilar a. thrombus can not be excluded -telemetry -ASA 325 Plus Plavix 75 mg startedX 21 days then ASA 325 mg daily - Increase Lipitor to 80 mg -PT,ST evaluate -Most likley will need Rehab evaluation. # Hypertensive urgency, malignant -We will resume routine home medications and monitor vital signs closely. -BP<150/80 gradual control # Noncompliance with medication regimen -Patient counseled on compliance with medications. # DVT prophylaxis -Patient placed on subcutaneous heparin. # Full code status -Patient is full code. PLAN 1- As above 2- D/W pt. his findings 3- Suggest compliance with medications 4- rehab. option 5- Follow up with neurology and PCP 6- ASA 325 mg daily X21 days then stop plavix and maintain ASA 325 mg daily Plus Lipitor 80 mg will sign off Subjective Date of service: 04/24/21 Principal diagnosis: CVA with left side weakness Interval history: better today up walking with help left side weakness CTA brain and neck noted LDL#156 Echo is pending Objective - Vital Sign Vital Signs - 12hr 04/24/21 04/24/21 04/24/21 02:45 03:55 08:44 Temperature 101.1 F H 98.0 F Pulse Rate 111 H 101 H Respiratory 18 20 Rate Blood Pressure 144/74 143/88 O2 Sat by Pulse 98 94 97 Oximetry 04/24/21 04/24/21 09:58 10:32 Temperature Pulse Rate 101 H Respiratory Rate Blood Pressure 143/88 O2 Sat by Pulse 97 Oximetry - General Apperance Constitutional: comfortable - EENT EENT: PERRL, mucous membranes moist - Respiratory Respiratory: chest non-tender, lungs clear, rhonchi - Cardiovascular Cardiovascular: regular rate, normal S1, normal S2 Extremities: no peripheral edema bilat, no clubbing, cyanosis - Gastrointestinal Gastrointestinal: normoactive bowel sounds - Integumentary Integumentary: normal - Neurologic Cranial nerve examination: PERRL, EOMI, other (slight left facial drop, no sensory deficit , no visual deficit) Detailed motor examination: other (left upper1/5 ,lower3+/5, gait is unsteady , no sensory deficit) - Laboratory Findings CBC and BMP: 04/24/21 04:31 04/24/21 04:31 Abnormal Lab Findings: Abnormal Labs 04/22/21 04/22/21 04/22/21 18:01 18:01 18:01 RBC 5.54 H Hgb 17.2 H Hct 49.1 H MCHC 35 H [place] % (Auto) Lymph # (Auto) 1.1 L Potassium CK-MB (CK-2) 5.4 H CK-MB (CK-2) Rel Index 5.4 H Triglycerides 157 H Cholesterol 227 H LDL Cholesterol Direct 156 H HDL Cholesterol 60 H 04/24/21 04/24/21 04:31 04:31 RBC 5.32 H Hgb 16.2 H Hct 47.4 H MCHC [place] % (Auto) 8.7 H Lymph # (Auto) Potassium 3.3 L CK-MB (CK-2) CK-MB (CK-2) Rel Index Triglycerides Cholesterol LDL Cholesterol Direct HDL Cholesterol
[2021-04-24 13:06] LABS: Bilirubin,Urine NEG (Negative); Blood,Urine NEG (Negative); Color,Urine Yellow (Yellow); Mucus,Urine 2+ /HPF; Urobilinogen,Urine < 2.0 mg/dL (<2.0)
[2021-04-24] MEDS: MORPHINE 2 MG/1 ML INJ IV PRN (22:31)
[2021-04-25] MEDS: HEPARIN 5,000 UNIT/1 ML VIAL SUB-Q SCH ×3 (07:10→21:56)
--- NOTE | 2021-04-25 09:16 | Progress Note ---
Assessment and Plan Assessment and plan: Acute CVA. Accelerated hypertension. Medical noncompliance 04/24/2021. CT brain is remarkable for angiopathic changes but nonspecific. MRI is suggestive of right pontine infarct with possibility of basilar artery thrombus. Continue Lipitor, aspirin and Plavix per neurology recommendations. Echocardiogram and CTA brain is pending. Await PT/OT/ST evaluations. 04/25/2021. Echocardiogram reveals left ventricular normal size and function. Severe concentric left ventricular hypertrophy. EF 65 to 70%. No reports of thrombus. CTA of head and neck essentially negative. Continue Lipitor, aspirin and Plavix per neurology recommendations. Physical therapy recommends acute rehab History Interval history: Patient with left upper extremity weakness. Hospitalist Physical - Constitutional Vitals: Temp Pulse Resp BP Pulse Ox 98.9 F 96 H 18 137/79 97 04/25/21 08:10 04/25/21 08:10 04/25/21 08:10 04/25/21 08:10 04/25/21 08:10 General appearance: Present: no acute distress, well-nourished - EENT Eyes: Present: PERRL, EOM intact ENT: hearing intact, clear oral mucosa, dentition normal - Neck Neck: Present: supple, normal ROM - Respiratory Respiratory effort: normal Respiratory: bilateral: CTA - Cardiovascular Rhythm: regular Heart Sounds: Present: S1 & S2. Absent: gallop, rub - Extremities Extremities: no ischemia, No edema, Full ROM - Abdominal General gastrointestinal: soft, non-tender, non-distended, normal bowel sounds - Integumentary Integumentary: Present: clear, warm, dry - Neurologic Neurologic: CNII-XII intact, moves all extremities HEART Score - HEART Score Troponin: Troponin T < 0.010 ng/mL (0.00-0.029) 04/22/21 18:01 Results - Labs CBC & Chem 7: 04/24/21 04:31 04/24/21 04:31 Labs: Laboratory Last Values WBC 7.1 K/mm3 (4.5-11.0) 04/24/21 04:31 RBC 5.32 M/mm3 (3.65-5.03) H 04/24/21 04:31 Hgb 16.2 gm/dl (11.8-15.2) H 04/24/21 04:31 Hct 47.4 % (35.5-45.6) H 04/24/21 04:31 MCV 89 fl (84-94) 04/24/21 04:31 MCH 30 pg (28-32) 04/24/21 04:31 MCHC 34 % (32-34) 04/24/21 04:31 RDW 14.4 % (13.2-15.2) 04/24/21 04:31 Plt Count 185 K/mm3 (140-440) 04/24/21 04:31 Lymph % (Auto) 22.1 % (13.4-35.0) 04/24/21 04:31 [place] % (Auto) 8.7 % (0.0-7.3) H 04/24/21 04:31 Eos % (Auto) 0.2 % (0.0-4.3) 04/24/21 04:31 Baso % (Auto) 0.2 % (0.0-1.8) 04/24/21 04:31 Lymph # (Auto) 1.6 K/mm3 (1.2-5.4) 04/24/21 04:31 [place] # (Auto) 0.6 K/mm3 (0.0-0.8) 04/24/21 04:31 Eos # (Auto) 0.0 K/mm3 (0.0-0.4) 04/24/21 04:31 Baso # (Auto) 0.0 K/mm3 (0.0-0.1) 04/24/21 04:31 Seg Neutrophils % 68.8 % (40.0-70.0) 04/24/21 04:31 Seg Neutrophils # 4.9 K/mm3 (1.8-7.7) 04/24/21 04:31 PT 13.3 Sec. (12.2-14.9) 04/24/21 04:31 INR 0.96 (0.87-1.13) 04/24/21 04:31 APTT 29.1 Sec. (24.2-36.6) 04/22/21 18:01 Thrombin Time 18.4 Sec. (15.1-19.6) 04/22/21 18:01 Sodium 142 mmol/L (137-145) 04/24/21 04:31 Potassium 3.3 mmol/L (3.6-5.0) L 04/24/21 04:31 Chloride 103.8 mmol/L (98-107) 04/24/21 04:31 Carbon Dioxide 27 mmol/L (22-30) 04/24/21 04:31 Anion Gap 15 mmol/L 04/24/21 04:31 BUN 19 mg/dL (9-20) 04/24/21 04:31 Creatinine 1.1 mg/dL (0.8-1.3) 04/24/21 04:31 Estimated GFR > 60 ml/min 04/24/21 04:31 BUN/Creatinine Ratio 17 % 04/24/21 04:31 Glucose 97 mg/dL (75-100) 04/24/21 04:31 POC Glucose 91 mg/dL (70-105) 04/25/21 07:52 Calcium 9.5 mg/dL (8.4-10.2) 04/24/21 04:31 Total Bilirubin 1.00 mg/dL (0.1-1.2) 04/22/21 18:01 AST 17 units/L (5-40) 04/22/21 18:01 ALT 14 units/L (7-56) 04/22/21 18:01 Alkaline Phosphatase 72 units/L (35-129) 04/22/21 18:01 Total Creatine Kinase 99 units/L (55-170) 04/22/21 18:01 CK-MB (CK-2) 5.4 ng/mL (0.0-4.0) H 04/22/21 18:01 CK-MB (CK-2) Rel Index 5.4 (0-4) H 04/22/21 18:01 Troponin T < 0.010 ng/mL (0.00-0.029) 04/22/21 18:01 Total Protein 7.3 g/dL (6.3-8.2) 04/22/21 18:01 Albumin 4.4 g/dL (3.9-5) 04/22/21 18:01 Albumin/Globulin Ratio 1.5 % 04/22/21 18:01 Triglycerides 157 mg/dL (2-149) H 04/22/21 18:01 Cholesterol 227 mg/dL (50-199) H 04/22/21 18:01 LDL Cholesterol Direct 156 mg/dL (50-130) H 04/22/21 18:01 HDL Cholesterol 60 mg/dL (40-59) H 04/22/21 18:01 Cholesterol/HDL Ratio 3.78 % 04/22/21 18:01 Urine Color Yellow (Yellow) 04/24/21 12:01 Urine Turbidity Clear (Clear) 04/24/21 12:01 Urine pH 5.0 (5.0-7.0) 04/24/21 12:01 Ur Specific [place] 1.033 (1.003-1.030) H 04/24/21 12:01 Urine Protein 30 mg/dl mg/dL (Negative) 04/24/21 12:01 Urine Glucose (UA) Neg mg/dL (Negative) 04/24/21 12:01 Urine Ketones Tr mg/dL (Negative) 04/24/21 12:01 Urine Blood Neg (Negative) 04/24/21 12:01 Urine Nitrite Neg (Negative) 04/24/21 12:01 Urine Bilirubin Neg (Negative) 04/24/21 12:01 Urine Urobilinogen < 2.0 mg/dL (<2.0) 04/24/21 12:01 Ur Leukocyte Esterase Neg (Negative) 04/24/21 12:01 Urine WBC (Auto) 2.0 /HPF (0.0-6.0) 04/24/21 12:01 Urine RBC (Auto) 2.0 /HPF (0.0-6.0) 04/24/21 12:01 U Epithel Cells (Auto) < 1.0 /HPF (0-13.0) 04/24/21 12:01 Urine Mucus 2+ /HPF 04/24/21 12:01 Johansen/IV: Voiding Method Urinal Active Medications - Current Medications Current Medications: Generic Name Dose Route Start Last Admin Trade Name Freq PRN Reason Stop Dose Admin Acetaminophen 650 mg 04/23/21 01:41 04/24/21 08:27 Acetaminophen 325 Mg Tab PO 650 mg Q4H PRN Administration Pain MILD(1-3)/Fever >100.5/MONTIEL Amlodipine Besylate 5 mg 04/23/21 10:00 04/24/21 10:32 Amlodipine 5 Mg Tab PO 5 mg DAILY LES Administration Aspirin 325 mg 04/23/21 10:00 04/24/21 10:32 Aspirin 325 Mg Tab PO 325 mg QDAY LES Administration Atorvastatin Calcium 80 mg 04/24/21 22:00 04/24/21 22:31 Atorvastatin 40 Mg Tab PO 80 mg QHS LES Administration Bisacodyl 10 mg 04/23/21 01:41 Bisacodyl 10 Mg Rect Supp [place] QDAY PRN Constipation Clopidogrel Bisulfate 75 mg 04/23/21 14:30 04/24/21 10:33 Clopidogrel 75 Mg Tab PO 75 mg QDAY LES Administration Heparin Sodium (Porcine) 5,000 unit 04/23/21 06:00 04/25/21 07:10 Heparin 5,000 Unit/1 Ml Vial SUB-Q 5,000 unit Q8HR LES Administration Hydralazine HCl 10 mg 04/23/21 05:46 04/23/21 11:45 Hydralazine 20 Mg/1 Ml Inj IV 10 mg Q4HR PRN Administration Blood Pressure Magnesium Hydroxide 30 ml 04/23/21 01:41 Magnesium Hydroxide (Mom) Oral Liqd Udc PO Q4H PRN Constipation Metoclopramide HCl 10 mg 04/23/21 01:41 Metoclopramide 10 Mg Tab PO Q6H PRN Nausea And Vomiting Minoxidil 10 mg 04/23/21 10:00 04/24/21 22:31 Minoxidil 10 Mg Tab PO 10 mg BID LES Administration Morphine Sulfate 2 mg 04/23/21 01:41 04/24/21 22:31 Morphine 2 Mg/1 Ml Inj IV 2 mg Q4H PRN Administration Pain, Moderate (4-6) Morphine Sulfate 4 mg 04/23/21 01:41 04/24/21 10:33 Morphine 4 Mg/1 Ml Inj IV 4 mg Q4H PRN Administration Pain , Severe (7-10) Ondansetron HCl 4 mg 04/23/21 01:41 04/23/21 10:30 Ondansetron 4 Mg/2 Ml Inj IV 4 mg Q8H PRN Administration Nausea And Vomiting Promethazine HCl 25 mg 04/23/21 01:41 Promethazine 25 Mg Rect Supp [place] Q6H PRN Nausea And Vomiting Sodium Chloride 10 ml 04/23/21 10:00 04/24/21 22:32 Sodium Chloride 0.9% 10 Ml Flush Syringe IV 10 ml BID LES Administration Sodium Chloride 10 ml 04/23/21 01:41 Sodium Chloride 0.9% 10 Ml Flush Syringe IV PRN PRN LINE FLUSH Nutrition/Malnutrition Assess - Dietary Evaluation Nutrition/Malnutrition Findings: Nutrition Notes Start: 04/23/21 11:34 Freq: Status: Active Protocol: Document 04/23/21 11:34 MELODIE (Rec: 04/23/21 11:35 MELODIE [id number]) Nutrition Notes Need for Assessment generated from: MD Order,Education Initial or Follow up Brief Note Current Diagnosis Hypertension,Stroke Other Pertinent Diagnosis medication noncompliance Current Diet cardiac Subjective/Other Information MD consult for diet education. Pt on hold in ED. Nutrition Intervention Follow-Up By: 04/27/21 Additional Comments F/u: diet edcuation
[2021-04-25] MEDS: ASPIRIN 325 MG TAB PO SCH (11:17)
[2021-04-25] MEDS: MINOXIDIL 10 MG TAB PO SCH ×2 (11:17→21:55)
[2021-04-25] MEDS: amLODIPine 5 MG TAB PO SCH (11:17)
[2021-04-25] MEDS: CLOPIDOGREL 75 MG TAB PO SCH (11:18)
--- NOTE | 2021-04-25 11:32 | Progress Note ---
Assessment and Plan Assessment and Plan - Patient Problems # CVA (cerebral vascular accident) -This is 51 ys old male with a new onset left side weakness X3days presented to ER for evaluation -pt. is not a candidate for TPA nor thrombectomy -NIH today#7 -Ct brain is remarkable for angiopathic changes not specific -CTA brain and neck is suggestive of mild narrow basilar artery ,no thrombus,with small left vertebral A. -LDL#154 and A1C is pending -Echo is pending -He is in NSR -BP#216/140-- BP is better today 144/74,HR#111 Regular -MRI brain is suggestive of right Aurelio infarct ,with possibility of basilar a. thrombus can not be excluded -telemetry -ASA 325 Plus Plavix 75 mg startedX 21 days then ASA 325 mg daily - Increase Lipitor to 80 mg -PT,ST evaluate - Rehab evaluation. -Left hip pain with no limitation -- deg. arthritis-- Do Xry left hip # Hypertensive urgency, malignant -We will resume routine home medications and monitor vital signs closely. -BP<150/80 gradual control # Noncompliance with medication regimen -Patient counseled on compliance with medications. # DVT prophylaxis -Patient placed on subcutaneous heparin. # Full code status -Patient is full code. PLAN 1- As above 2- D/W pt. his findings 3- Suggest compliance with medications 4- rehab. option 5- Follow up with neurology and PCP 6- ASA 325 mg daily X21 days then stop plavix and maintain ASA 325 mg daily Plus Lipitor 80 mg 7- Xry left hip Subjective Date of service: 04/25/21 Principal diagnosis: CVA with left side weakness Interval history: some improvment in left arm and leg weakness able to move arm some what , as well leg Complain of left hip pain left side weakness CTA brain and neck noted LDL#156 Echo left diastolic dysfunction ,EF#65-70% Objective - Vital Sign Vital Signs - 12hr 04/24/21 04/25/21 04/25/21 23:38 01:41 03:56 Temperature 98.8 F 98.6 F Pulse Rate 102 H 91 H Respiratory 17 18 Rate Blood Pressure 150/85 147/86 O2 Sat by Pulse 98 98 96 Oximetry 04/25/21 08:10 Temperature 98.9 F Pulse Rate 96 H Respiratory 18 Rate Blood Pressure 137/79 O2 Sat by Pulse 97 Oximetry - General Apperance Constitutional: comfortable - EENT EENT: PERRL - Respiratory Respiratory: chest non-tender, lungs clear, rhonchi - Cardiovascular Cardiovascular: regular rate, normal S1, normal S2 Extremities: no peripheral edema bilat, no clubbing, cyanosis - Gastrointestinal Gastrointestinal: normoactive bowel sounds - Integumentary Integumentary: normal - Neurologic Cranial nerve examination: PERRL, EOMI, other (slight left facial droop ) Detailed motor examination: other (left upper is 2/5 , left lower 3+/5 ,gait able to ambulate with assistance,) - Laboratory Findings CBC and BMP: 04/24/21 04:31 04/24/21 04:31 Abnormal Lab Findings: Abnormal Labs 04/22/21 04/22/21 04/22/21 18:01 18:01 18:01 RBC 5.54 H Hgb 17.2 H Hct 49.1 H MCHC 35 H [place] % (Auto) Lymph # (Auto) 1.1 L Potassium CK-MB (CK-2) 5.4 H CK-MB (CK-2) Rel Index 5.4 H Triglycerides 157 H Cholesterol 227 H LDL Cholesterol Direct 156 H HDL Cholesterol 60 H Ur Specific [place] 04/24/21 04/24/21 04/24/21 04:31 04:31 12:01 RBC 5.32 H Hgb 16.2 H Hct 47.4 H MCHC [place] % (Auto) 8.7 H Lymph # (Auto) Potassium 3.3 L CK-MB (CK-2) CK-MB (CK-2) Rel Index Triglycerides Cholesterol LDL Cholesterol Direct HDL Cholesterol Ur Specific [place] 1.033 H
--- NOTE | 2021-04-25 13:14 | XRay Report ---
LEFT HIP 2 VIEWS INDICATION / CLINICAL INFORMATION: left hip pain COMPARISON: None available. FINDINGS: BONES and JOINT(S): No acute fracture or subluxation. There is mild osteoarthritis of the hips. SOFT TISSUES: No significant abnormality. ADDITIONAL FINDINGS: None. IMPRESSION: 1. No acute findings. 2. Mild osteoarthritis of the hips. Signer Name: Don Colin MD Signed: 04/25/2021 1:09 PM Workstation Name: [id number]
[2021-04-26] MEDS: HEPARIN 5,000 UNIT/1 ML VIAL SUB-Q SCH ×4 (05:53→21:15)
--- NOTE | 2021-04-26 09:13 | Progress Note ---
Assessment and Plan Assessment and plan: Acute CVA. Accelerated hypertension. Medical noncompliance 04/24/2021. CT brain is remarkable for angiopathic changes but nonspecific. MRI is suggestive of right pontine infarct with possibility of basilar artery thrombus. Continue Lipitor, aspirin and Plavix per neurology recommendations. Echocardiogram and CTA brain is pending. Await PT/OT/ST evaluations. 04/25/2021. Echocardiogram reveals left ventricular normal size and function. Severe concentric left ventricular hypertrophy. EF 65 to 70%. No reports of thrombus. CTA of head and neck essentially negative. Continue Lipitor, aspirin and Plavix per neurology recommendations. Physical therapy recommends acute rehab 04/26/2021. Continue Lipitor, aspirin and Plavix per neurology recommendations. Physical therapy recommends acute rehab. Await placement. Add labetalol for blood pressure control. History Interval history: Patient with left upper extremity weakness. Hospitalist Physical - Constitutional Vitals: Temp Pulse Resp BP Pulse Ox 98.1 F 98 H 16 151/86 93 04/26/21 07:54 04/26/21 07:54 04/26/21 07:54 04/26/21 07:54 04/26/21 07:54 General appearance: Present: no acute distress, well-nourished - EENT Eyes: Present: PERRL, EOM intact ENT: hearing intact, clear oral mucosa, dentition normal - Neck Neck: Present: supple, normal ROM - Respiratory Respiratory effort: normal Respiratory: bilateral: CTA - Cardiovascular Rhythm: regular Heart Sounds: Present: S1 & S2. Absent: gallop, rub - Extremities Extremities: no ischemia, No edema, Full ROM - Abdominal General gastrointestinal: soft, non-tender, non-distended, normal bowel sounds - Integumentary Integumentary: Present: clear, warm, dry - Neurologic Neurologic: CNII-XII intact, moves all extremities HEART Score - HEART Score Troponin: Troponin T < 0.010 ng/mL (0.00-0.029) 04/22/21 18:01 Results - Labs CBC & Chem 7: 04/24/21 04:31 04/24/21 04:31 Labs: Laboratory Last Values WBC 7.1 K/mm3 (4.5-11.0) 04/24/21 04:31 RBC 5.32 M/mm3 (3.65-5.03) H 04/24/21 04:31 Hgb 16.2 gm/dl (11.8-15.2) H 04/24/21 04:31 Hct 47.4 % (35.5-45.6) H 04/24/21 04:31 MCV 89 fl (84-94) 04/24/21 04:31 MCH 30 pg (28-32) 04/24/21 04:31 MCHC 34 % (32-34) 04/24/21 04:31 RDW 14.4 % (13.2-15.2) 04/24/21 04:31 Plt Count 185 K/mm3 (140-440) 04/24/21 04:31 Lymph % (Auto) 22.1 % (13.4-35.0) 04/24/21 04:31 [place] % (Auto) 8.7 % (0.0-7.3) H 04/24/21 04:31 Eos % (Auto) 0.2 % (0.0-4.3) 04/24/21 04:31 Baso % (Auto) 0.2 % (0.0-1.8) 04/24/21 04:31 Lymph # (Auto) 1.6 K/mm3 (1.2-5.4) 04/24/21 04:31 [place] # (Auto) 0.6 K/mm3 (0.0-0.8) 04/24/21 04:31 Eos # (Auto) 0.0 K/mm3 (0.0-0.4) 04/24/21 04:31 Baso # (Auto) 0.0 K/mm3 (0.0-0.1) 04/24/21 04:31 Seg Neutrophils % 68.8 % (40.0-70.0) 04/24/21 04:31 Seg Neutrophils # 4.9 K/mm3 (1.8-7.7) 04/24/21 04:31 PT 13.3 Sec. (12.2-14.9) 04/24/21 04:31 INR 0.96 (0.87-1.13) 04/24/21 04:31 APTT 29.1 Sec. (24.2-36.6) 04/22/21 18:01 Thrombin Time 18.4 Sec. (15.1-19.6) 04/22/21 18:01 Sodium 142 mmol/L (137-145) 04/24/21 04:31 Potassium 3.3 mmol/L (3.6-5.0) L 04/24/21 04:31 Chloride 103.8 mmol/L (98-107) 04/24/21 04:31 Carbon Dioxide 27 mmol/L (22-30) 04/24/21 04:31 Anion Gap 15 mmol/L 04/24/21 04:31 BUN 19 mg/dL (9-20) 04/24/21 04:31 Creatinine 1.1 mg/dL (0.8-1.3) 04/24/21 04:31 Estimated GFR > 60 ml/min 04/24/21 04:31 BUN/Creatinine Ratio 17 % 04/24/21 04:31 Glucose 97 mg/dL (75-100) 04/24/21 04:31 POC Glucose 93 mg/dL (70-105) 04/25/21 15:41 Calcium 9.5 mg/dL (8.4-10.2) 04/24/21 04:31 Total Bilirubin 1.00 mg/dL (0.1-1.2) 04/22/21 18:01 AST 17 units/L (5-40) 04/22/21 18:01 ALT 14 units/L (7-56) 04/22/21 18:01 Alkaline Phosphatase 72 units/L (35-129) 04/22/21 18:01 Total Creatine Kinase 99 units/L (55-170) 04/22/21 18:01 CK-MB (CK-2) 5.4 ng/mL (0.0-4.0) H 04/22/21 18:01 CK-MB (CK-2) Rel Index 5.4 (0-4) H 04/22/21 18:01 Troponin T < 0.010 ng/mL (0.00-0.029) 04/22/21 18:01 Total Protein 7.3 g/dL (6.3-8.2) 04/22/21 18:01 Albumin 4.4 g/dL (3.9-5) 04/22/21 18:01 Albumin/Globulin Ratio 1.5 % 04/22/21 18:01 Triglycerides 157 mg/dL (2-149) H 04/22/21 18:01 Cholesterol 227 mg/dL (50-199) H 04/22/21 18:01 LDL Cholesterol Direct 156 mg/dL (50-130) H 04/22/21 18:01 HDL Cholesterol 60 mg/dL (40-59) H 04/22/21 18:01 Cholesterol/HDL Ratio 3.78 % 04/22/21 18:01 Urine Color Yellow (Yellow) 04/24/21 12:01 Urine Turbidity Clear (Clear) 04/24/21 12:01 Urine pH 5.0 (5.0-7.0) 04/24/21 12:01 Ur Specific [place] 1.033 (1.003-1.030) H 04/24/21 12:01 Urine Protein 30 mg/dl mg/dL (Negative) 04/24/21 12:01 Urine Glucose (UA) Neg mg/dL (Negative) 04/24/21 12:01 Urine Ketones Tr mg/dL (Negative) 04/24/21 12:01 Urine Blood Neg (Negative) 04/24/21 12:01 Urine Nitrite Neg (Negative) 04/24/21 12:01 Urine Bilirubin Neg (Negative) 04/24/21 12:01 Urine Urobilinogen < 2.0 mg/dL (<2.0) 04/24/21 12:01 Ur Leukocyte Esterase Neg (Negative) 04/24/21 12:01 Urine WBC (Auto) 2.0 /HPF (0.0-6.0) 04/24/21 12:01 Urine RBC (Auto) 2.0 /HPF (0.0-6.0) 04/24/21 12:01 U Epithel Cells (Auto) < 1.0 /HPF (0-13.0) 04/24/21 12:01 Urine Mucus 2+ /HPF 04/24/21 12:01 Johansen/IV: Voiding Method Urinal Active Medications - Current Medications Current Medications: Generic Name Dose Route Start Last Admin Trade Name Freq PRN Reason Stop Dose Admin Acetaminophen 650 mg 04/23/21 01:41 04/24/21 08:27 Acetaminophen 325 Mg Tab PO 650 mg Q4H PRN Administration Pain MILD(1-3)/Fever >100.5/MONTIEL Amlodipine Besylate 5 mg 04/23/21 10:00 04/25/21 11:17 Amlodipine 5 Mg Tab PO 5 mg DAILY LES Administration Aspirin 325 mg 04/23/21 10:00 04/25/21 11:17 Aspirin 325 Mg Tab PO 325 mg QDAY LES Administration Atorvastatin Calcium 80 mg 04/24/21 22:00 04/25/21 21:55 Atorvastatin 40 Mg Tab PO 80 mg QHS LES Administration Bisacodyl 10 mg 04/23/21 01:41 Bisacodyl 10 Mg Rect Supp [place] QDAY PRN Constipation Clopidogrel Bisulfate 75 mg 04/23/21 14:30 04/25/21 11:18 Clopidogrel 75 Mg Tab PO 75 mg QDAY LES Administration Heparin Sodium (Porcine) 5,000 unit 04/23/21 06:00 04/26/21 05:53 Heparin 5,000 Unit/1 Ml Vial SUB-Q 5,000 unit Q8HR LES Administration Hydralazine HCl 10 mg 04/23/21 05:46 04/23/21 11:45 Hydralazine 20 Mg/1 Ml Inj IV 10 mg Q4HR PRN Administration Blood Pressure Magnesium Hydroxide 30 ml 04/23/21 01:41 Magnesium Hydroxide (Mom) Oral Liqd Udc PO Q4H PRN Constipation Metoclopramide HCl 10 mg 04/23/21 01:41 Metoclopramide 10 Mg Tab PO Q6H PRN Nausea And Vomiting Minoxidil 10 mg 04/23/21 10:00 04/25/21 21:55 Minoxidil 10 Mg Tab PO 10 mg BID LES Administration Morphine Sulfate 2 mg 04/23/21 01:41 04/24/21 22:31 Morphine 2 Mg/1 Ml Inj IV 2 mg Q4H PRN Administration Pain, Moderate (4-6) Morphine Sulfate 4 mg 04/23/21 01:41 04/24/21 10:33 Morphine 4 Mg/1 Ml Inj IV 4 mg Q4H PRN Administration Pain , Severe (7-10) Ondansetron HCl 4 mg 04/23/21 01:41 04/23/21 10:30 Ondansetron 4 Mg/2 Ml Inj IV 4 mg Q8H PRN Administration Nausea And Vomiting Promethazine HCl 25 mg 04/23/21 01:41 Promethazine 25 Mg Rect Supp [place] Q6H PRN Nausea And Vomiting Sodium Chloride 10 ml 04/23/21 10:00 04/25/21 21:56 Sodium Chloride 0.9% 10 Ml Flush Syringe IV 10 ml BID LES Administration Sodium Chloride 10 ml 04/23/21 01:41 Sodium Chloride 0.9% 10 Ml Flush Syringe IV PRN PRN LINE FLUSH Nutrition/Malnutrition Assess - Dietary Evaluation Nutrition/Malnutrition Findings: Nutrition Notes Start: 04/23/21 11:34 Freq: Status: Active Protocol: Document 04/23/21 11:34 MK (Rec: 04/23/21 11:35 MK [id number]) Nutrition Notes Need for Assessment generated from: MD Order,Education Initial or Follow up Brief Note Current Diagnosis Hypertension,Stroke Other Pertinent Diagnosis medication noncompliance Current Diet cardiac Subjective/Other Information MD consult for diet education. Pt on hold in ED. Nutrition Intervention Follow-Up By: 04/27/21 Additional Comments F/u: diet edcuation
[2021-04-26] MEDS: ASPIRIN 325 MG TAB PO SCH (12:23)
[2021-04-26] MEDS: amLODIPine 5 MG TAB PO SCH (12:23)
[2021-04-26] MEDS: CLOPIDOGREL 75 MG TAB PO SCH (12:24)
[2021-04-26] MEDS: MINOXIDIL 10 MG TAB PO SCH ×2 (12:24→21:11)
[2021-04-27] MEDS: HEPARIN 5,000 UNIT/1 ML VIAL SUB-Q SCH ×3 (05:23→21:50)
--- NOTE | 2021-04-27 08:58 | Progress Note ---
Assessment and Plan Assessment and plan: Acute CVA. Accelerated hypertension. Medical noncompliance 04/24/2021. CT brain is remarkable for angiopathic changes but nonspecific. MRI is suggestive of right pontine infarct with possibility of basilar artery thrombus. Continue Lipitor, aspirin and Plavix per neurology recommendations. Echocardiogram and CTA brain is pending. Await PT/OT/ST evaluations. 04/25/2021. Echocardiogram reveals left ventricular normal size and function. Severe concentric left ventricular hypertrophy. EF 65 to 70%. No reports of thrombus. CTA of head and neck essentially negative. Continue Lipitor, aspirin and Plavix per neurology recommendations. Physical therapy recommends acute rehab 04/26/2021. Continue Lipitor, aspirin and Plavix per neurology recommendations. Physical therapy recommends acute rehab. Await placement. Add labetalol for blood pressure control. 04/27/2021. Blood pressure much better controlled with addition of labetalol. Continue Lipitor, aspirin and Plavix per neurology recommendations. Physical therapy recommends acute rehab. Await placement. History Interval history: Patient with left upper extremity weakness. Hospitalist Physical - Constitutional Vitals: Temp Pulse Resp BP Pulse Ox 98.0 F 79 12 137/73 96 04/27/21 03:10 04/27/21 03:10 04/27/21 03:10 04/27/21 03:10 04/27/21 03:10 General appearance: Present: no acute distress, well-nourished - EENT Eyes: Present: PERRL, EOM intact ENT: hearing intact, clear oral mucosa, dentition normal - Neck Neck: Present: supple, normal ROM - Respiratory Respiratory effort: normal Respiratory: bilateral: CTA - Cardiovascular Rhythm: regular Heart Sounds: Present: S1 & S2. Absent: gallop, rub - Extremities Extremities: no ischemia, No edema, Full ROM - Abdominal General gastrointestinal: soft, non-tender, non-distended, normal bowel sounds - Integumentary Integumentary: Present: clear, warm, dry - Neurologic Neurologic: CNII-XII intact, moves all extremities HEART Score - HEART Score Troponin: Troponin T < 0.010 ng/mL (0.00-0.029) 04/22/21 18:01 Results - Labs CBC & Chem 7: 04/24/21 04:31 04/24/21 04:31 Labs: Laboratory Last Values WBC 7.1 K/mm3 (4.5-11.0) 04/24/21 04:31 RBC 5.32 M/mm3 (3.65-5.03) H 04/24/21 04:31 Hgb 16.2 gm/dl (11.8-15.2) H 04/24/21 04:31 Hct 47.4 % (35.5-45.6) H 04/24/21 04:31 MCV 89 fl (84-94) 04/24/21 04:31 MCH 30 pg (28-32) 04/24/21 04:31 MCHC 34 % (32-34) 04/24/21 04:31 RDW 14.4 % (13.2-15.2) 04/24/21 04:31 Plt Count 185 K/mm3 (140-440) 04/24/21 04:31 Lymph % (Auto) 22.1 % (13.4-35.0) 04/24/21 04:31 [place] % (Auto) 8.7 % (0.0-7.3) H 04/24/21 04:31 Eos % (Auto) 0.2 % (0.0-4.3) 04/24/21 04:31 Baso % (Auto) 0.2 % (0.0-1.8) 04/24/21 04:31 Lymph # (Auto) 1.6 K/mm3 (1.2-5.4) 04/24/21 04:31 [place] # (Auto) 0.6 K/mm3 (0.0-0.8) 04/24/21 04:31 Eos # (Auto) 0.0 K/mm3 (0.0-0.4) 04/24/21 04:31 Baso # (Auto) 0.0 K/mm3 (0.0-0.1) 04/24/21 04:31 Seg Neutrophils % 68.8 % (40.0-70.0) 04/24/21 04:31 Seg Neutrophils # 4.9 K/mm3 (1.8-7.7) 04/24/21 04:31 PT 13.3 Sec. (12.2-14.9) 04/24/21 04:31 INR 0.96 (0.87-1.13) 04/24/21 04:31 APTT 29.1 Sec. (24.2-36.6) 04/22/21 18:01 Thrombin Time 18.4 Sec. (15.1-19.6) 04/22/21 18:01 Sodium 142 mmol/L (137-145) 04/24/21 04:31 Potassium 3.3 mmol/L (3.6-5.0) L 04/24/21 04:31 Chloride 103.8 mmol/L (98-107) 04/24/21 04:31 Carbon Dioxide 27 mmol/L (22-30) 04/24/21 04:31 Anion Gap 15 mmol/L 04/24/21 04:31 BUN 19 mg/dL (9-20) 04/24/21 04:31 Creatinine 1.1 mg/dL (0.8-1.3) 04/24/21 04:31 Estimated GFR > 60 ml/min 04/24/21 04:31 BUN/Creatinine Ratio 17 % 04/24/21 04:31 Glucose 97 mg/dL (75-100) 04/24/21 04:31 POC Glucose 93 mg/dL (70-105) 04/25/21 15:41 Calcium 9.5 mg/dL (8.4-10.2) 04/24/21 04:31 Total Bilirubin 1.00 mg/dL (0.1-1.2) 04/22/21 18:01 AST 17 units/L (5-40) 04/22/21 18:01 ALT 14 units/L (7-56) 04/22/21 18:01 Alkaline Phosphatase 72 units/L (35-129) 04/22/21 18:01 Total Creatine Kinase 99 units/L (55-170) 04/22/21 18:01 CK-MB (CK-2) 5.4 ng/mL (0.0-4.0) H 04/22/21 18:01 CK-MB (CK-2) Rel Index 5.4 (0-4) H 04/22/21 18:01 Troponin T < 0.010 ng/mL (0.00-0.029) 04/22/21 18:01 Total Protein 7.3 g/dL (6.3-8.2) 04/22/21 18:01 Albumin 4.4 g/dL (3.9-5) 04/22/21 18:01 Albumin/Globulin Ratio 1.5 % 04/22/21 18:01 Triglycerides 157 mg/dL (2-149) H 04/22/21 18:01 Cholesterol 227 mg/dL (50-199) H 04/22/21 18:01 LDL Cholesterol Direct 156 mg/dL (50-130) H 04/22/21 18:01 HDL Cholesterol 60 mg/dL (40-59) H 04/22/21 18:01 Cholesterol/HDL Ratio 3.78 % 04/22/21 18:01 Urine Color Yellow (Yellow) 04/24/21 12:01 Urine Turbidity Clear (Clear) 04/24/21 12:01 Urine pH 5.0 (5.0-7.0) 04/24/21 12:01 Ur Specific [place] 1.033 (1.003-1.030) H 04/24/21 12:01 Urine Protein 30 mg/dl mg/dL (Negative) 04/24/21 12:01 Urine Glucose (UA) Neg mg/dL (Negative) 04/24/21 12:01 Urine Ketones Tr mg/dL (Negative) 04/24/21 12:01 Urine Blood Neg (Negative) 04/24/21 12:01 Urine Nitrite Neg (Negative) 04/24/21 12:01 Urine Bilirubin Neg (Negative) 04/24/21 12:01 Urine Urobilinogen < 2.0 mg/dL (<2.0) 04/24/21 12:01 Ur Leukocyte Esterase Neg (Negative) 04/24/21 12:01 Urine WBC (Auto) 2.0 /HPF (0.0-6.0) 04/24/21 12:01 Urine RBC (Auto) 2.0 /HPF (0.0-6.0) 04/24/21 12:01 U Epithel Cells (Auto) < 1.0 /HPF (0-13.0) 04/24/21 12:01 Urine Mucus 2+ /HPF 04/24/21 12:01 Johansen/IV: Voiding Method Urinal Active Medications - Current Medications Current Medications: Generic Name Dose Route Start Last Admin Trade Name Freq PRN Reason Stop Dose Admin Acetaminophen 650 mg 04/23/21 01:41 04/24/21 08:27 Acetaminophen 325 Mg Tab PO 650 mg Q4H PRN Administration Pain MILD(1-3)/Fever >100.5/MONTIEL Amlodipine Besylate 5 mg 04/23/21 10:00 04/26/21 12:23 Amlodipine 5 Mg Tab PO 5 mg DAILY LES Administration Aspirin 325 mg 04/23/21 10:00 04/26/21 12:23 Aspirin 325 Mg Tab PO 325 mg QDAY LES Administration Atorvastatin Calcium 80 mg 04/24/21 22:00 04/26/21 21:11 Atorvastatin 40 Mg Tab PO 80 mg QHS LES Administration Bisacodyl 10 mg 04/23/21 01:41 Bisacodyl 10 Mg Rect Supp AL QDAY PRN Constipation Clopidogrel Bisulfate 75 mg 04/23/21 14:30 04/26/21 12:24 Clopidogrel 75 Mg Tab PO 75 mg QDAY LES Administration Heparin Sodium (Porcine) 5,000 unit 04/23/21 06:00 04/27/21 05:23 Heparin 5,000 Unit/1 Ml Vial SUB-Q 5,000 unit Q8HR LES Administration Hydralazine HCl 10 mg 04/23/21 05:46 04/23/21 11:45 Hydralazine 20 Mg/1 Ml Inj IV 10 mg Q4HR PRN Administration Blood Pressure Labetalol HCl 200 mg 04/26/21 10:00 04/26/21 21:11 Labetalol 200 Mg Tab PO 200 mg BID LES Administration Magnesium Hydroxide 30 ml 04/23/21 01:41 Magnesium Hydroxide (Mom) Oral Liqd Udc PO Q4H PRN Constipation Metoclopramide HCl 10 mg 04/23/21 01:41 Metoclopramide 10 Mg Tab PO Q6H PRN Nausea And Vomiting Minoxidil 10 mg 04/23/21 10:00 04/26/21 21:11 Minoxidil 10 Mg Tab PO 10 mg BID LES Administration Morphine Sulfate 2 mg 04/23/21 01:41 04/24/21 22:31 Morphine 2 Mg/1 Ml Inj IV 2 mg Q4H PRN Administration Pain, Moderate (4-6) Morphine Sulfate 4 mg 04/23/21 01:41 04/24/21 10:33 Morphine 4 Mg/1 Ml Inj IV 4 mg Q4H PRN Administration Pain , Severe (7-10) Ondansetron HCl 4 mg 04/23/21 01:41 04/23/21 10:30 Ondansetron 4 Mg/2 Ml Inj IV 4 mg Q8H PRN Administration Nausea And Vomiting Promethazine HCl 25 mg 04/23/21 01:41 Promethazine 25 Mg Rect Supp AL Q6H PRN Nausea And Vomiting Sodium Chloride 10 ml 04/23/21 10:00 04/26/21 21:11 Sodium Chloride 0.9% 10 Ml Flush Syringe IV 10 ml BID LES Administration Sodium Chloride 10 ml 04/23/21 01:41 Sodium Chloride 0.9% 10 Ml Flush Syringe IV PRN PRN LINE FLUSH Nutrition/Malnutrition Assess - Dietary Evaluation Nutrition/Malnutrition Findings: Nutrition Notes Start: 04/23/21 11:34 Freq: Status: Active Protocol: Document 04/23/21 11:34 MELODIE (Rec: 04/23/21 11:35 MELODIE [id number]) Nutrition Notes Need for Assessment generated from: MD Order,Education Initial or Follow up Brief Note Current Diagnosis Hypertension,Stroke Other Pertinent Diagnosis medication noncompliance Current Diet cardiac Subjective/Other Information MD consult for diet education. Pt on hold in ED. Nutrition Intervention Follow-Up By: 04/27/21 Additional Comments F/u: diet edcuation
[2021-04-27] MEDS: amLODIPine 5 MG TAB PO SCH (10:38)
[2021-04-27] MEDS: CLOPIDOGREL 75 MG TAB PO SCH (10:38)
[2021-04-27] MEDS: ACETAMINOPHEN 325 MG TAB PO PRN (10:38)
[2021-04-27] MEDS: MINOXIDIL 10 MG TAB PO SCH ×2 (10:38→21:50)
[2021-04-27] MEDS: ASPIRIN 325 MG TAB PO SCH (10:38)
--- NOTE | 2021-04-27 13:59 | Electrocardiograph Report ---
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
[2021-04-28] MEDS: HEPARIN 5,000 UNIT/1 ML VIAL SUB-Q SCH ×3 (05:56→23:51)
[2021-04-28] MEDS: amLODIPine 5 MG TAB PO SCH (10:34)
[2021-04-28] MEDS: ACETAMINOPHEN 325 MG TAB PO PRN (10:34)
[2021-04-28] MEDS: CLOPIDOGREL 75 MG TAB PO SCH (10:34)
[2021-04-28] MEDS: ASPIRIN 325 MG TAB PO SCH (10:34)
[2021-04-28] MEDS: MINOXIDIL 10 MG TAB PO SCH ×2 (10:34→23:50)
--- NOTE | 2021-04-28 18:47 | Progress Note ---
Assessment and Plan Assessment and plan: Acute CVA. Accelerated hypertension. Medical noncompliance 04/24/2021. CT brain is remarkable for angiopathic changes but nonspecific. MRI is suggestive of right pontine infarct with possibility of basilar artery thrombus. Continue Lipitor, aspirin and Plavix per neurology recommendations. Echocardiogram and CTA brain is pending. Await PT/OT/ST evaluations. 04/25/2021. Echocardiogram reveals left ventricular normal size and function. Severe concentric left ventricular hypertrophy. EF 65 to 70%. No reports of thrombus. CTA of head and neck essentially negative. Continue Lipitor, aspirin and Plavix per neurology recommendations. Physical therapy recommends acute rehab 04/26/2021. Continue Lipitor, aspirin and Plavix per neurology recommendations. Physical therapy recommends acute rehab. Await placement. Add labetalol for blood pressure control. 04/27/2021. Blood pressure much better controlled with addition of labetalol. Continue Lipitor, aspirin and Plavix per neurology recommendations. Physical therapy recommends acute rehab. Await placement. 04/28/21 Patient with acute stroke. Awaiting placement. History Interval history: Left sided weakness Hospitalist Physical - Physical exam Narrative exam: Gen:Not in acute distress, lying in bed HEENT:Normocephalic, atraumatic Neck:supple, no JVD Lungs: clear to auscultation bilaterally, no wheeze Heart:S1 and S2 reg, no murmurs, rubs or gallop Abd:Soft, non tender, non distended, normal bowel sounds Ext:No edema. no clubbing, no cyanosis Neuro:Awake, alert, oriented X 3, left hemiparesis - Constitutional Vitals: Temp Pulse Resp BP Pulse Ox 98.3 F 89 20 119/82 96 04/28/21 16:07 04/28/21 16:07 04/28/21 16:07 04/28/21 16:07 04/28/21 16:07 General appearance: Present: no acute distress, well-nourished HEART Score - HEART Score Troponin: Troponin T < 0.010 ng/mL (0.00-0.029) 04/22/21 18:01 Results - Labs CBC & Chem 7: 04/24/21 04:31 04/24/21 04:31 Labs: Laboratory Last Values WBC 7.1 K/mm3 (4.5-11.0) 04/24/21 04:31 RBC 5.32 M/mm3 (3.65-5.03) H 04/24/21 04:31 Hgb 16.2 gm/dl (11.8-15.2) H 04/24/21 04:31 Hct 47.4 % (35.5-45.6) H 04/24/21 04:31 MCV 89 fl (84-94) 04/24/21 04:31 MCH 30 pg (28-32) 04/24/21 04:31 MCHC 34 % (32-34) 04/24/21 04:31 RDW 14.4 % (13.2-15.2) 04/24/21 04:31 Plt Count 185 K/mm3 (140-440) 04/24/21 04:31 Lymph % (Auto) 22.1 % (13.4-35.0) 04/24/21 04:31 [place] % (Auto) 8.7 % (0.0-7.3) H 04/24/21 04:31 Eos % (Auto) 0.2 % (0.0-4.3) 04/24/21 04:31 Baso % (Auto) 0.2 % (0.0-1.8) 04/24/21 04:31 Lymph # (Auto) 1.6 K/mm3 (1.2-5.4) 04/24/21 04:31 [place] # (Auto) 0.6 K/mm3 (0.0-0.8) 04/24/21 04:31 Eos # (Auto) 0.0 K/mm3 (0.0-0.4) 04/24/21 04:31 Baso # (Auto) 0.0 K/mm3 (0.0-0.1) 04/24/21 04:31 Seg Neutrophils % 68.8 % (40.0-70.0) 04/24/21 04:31 Seg Neutrophils # 4.9 K/mm3 (1.8-7.7) 04/24/21 04:31 PT 13.3 Sec. (12.2-14.9) 04/24/21 04:31 INR 0.96 (0.87-1.13) 04/24/21 04:31 APTT 29.1 Sec. (24.2-36.6) 04/22/21 18:01 Thrombin Time 18.4 Sec. (15.1-19.6) 04/22/21 18:01 Sodium 142 mmol/L (137-145) 04/24/21 04:31 Potassium 3.3 mmol/L (3.6-5.0) L 04/24/21 04:31 Chloride 103.8 mmol/L (98-107) 04/24/21 04:31 Carbon Dioxide 27 mmol/L (22-30) 04/24/21 04:31 Anion Gap 15 mmol/L 04/24/21 04:31 BUN 19 mg/dL (9-20) 04/24/21 04:31 Creatinine 1.1 mg/dL (0.8-1.3) 04/24/21 04:31 Estimated GFR > 60 ml/min 04/24/21 04:31 BUN/Creatinine Ratio 17 % 04/24/21 04:31 Glucose 97 mg/dL (75-100) 04/24/21 04:31 POC Glucose 93 mg/dL (70-105) 04/25/21 15:41 Calcium 9.5 mg/dL (8.4-10.2) 04/24/21 04:31 Total Bilirubin 1.00 mg/dL (0.1-1.2) 04/22/21 18:01 AST 17 units/L (5-40) 04/22/21 18:01 ALT 14 units/L (7-56) 04/22/21 18:01 Alkaline Phosphatase 72 units/L (35-129) 04/22/21 18:01 Total Creatine Kinase 99 units/L (55-170) 04/22/21 18:01 CK-MB (CK-2) 5.4 ng/mL (0.0-4.0) H 04/22/21 18:01 CK-MB (CK-2) Rel Index 5.4 (0-4) H 04/22/21 18:01 Troponin T < 0.010 ng/mL (0.00-0.029) 04/22/21 18:01 Total Protein 7.3 g/dL (6.3-8.2) 04/22/21 18:01 Albumin 4.4 g/dL (3.9-5) 04/22/21 18:01 Albumin/Globulin Ratio 1.5 % 04/22/21 18:01 Triglycerides 157 mg/dL (2-149) H 04/22/21 18:01 Cholesterol 227 mg/dL (50-199) H 04/22/21 18:01 LDL Cholesterol Direct 156 mg/dL (50-130) H 04/22/21 18:01 HDL Cholesterol 60 mg/dL (40-59) H 04/22/21 18:01 Cholesterol/HDL Ratio 3.78 % 04/22/21 18:01 Urine Color Yellow (Yellow) 04/24/21 12:01 Urine Turbidity Clear (Clear) 04/24/21 12:01 Urine pH 5.0 (5.0-7.0) 04/24/21 12:01 Ur Specific [place] 1.033 (1.003-1.030) H 04/24/21 12:01 Urine Protein 30 mg/dl mg/dL (Negative) 04/24/21 12:01 Urine Glucose (UA) Neg mg/dL (Negative) 04/24/21 12:01 Urine Ketones Tr mg/dL (Negative) 04/24/21 12:01 Urine Blood Neg (Negative) 04/24/21 12:01 Urine Nitrite Neg (Negative) 04/24/21 12:01 Urine Bilirubin Neg (Negative) 04/24/21 12:01 Urine Urobilinogen < 2.0 mg/dL (<2.0) 04/24/21 12:01 Ur Leukocyte Esterase Neg (Negative) 04/24/21 12:01 Urine WBC (Auto) 2.0 /HPF (0.0-6.0) 04/24/21 12:01 Urine RBC (Auto) 2.0 /HPF (0.0-6.0) 04/24/21 12:01 U Epithel Cells (Auto) < 1.0 /HPF (0-13.0) 04/24/21 12:01 Urine Mucus 2+ /HPF 04/24/21 12:01 Johansen/IV: Voiding Method Urinal Active Medications - Current Medications Current Medications: Generic Name Dose Route Start Last Admin Trade Name Freq PRN Reason Stop Dose Admin Acetaminophen 650 mg 04/23/21 01:41 04/28/21 10:34 Acetaminophen 325 Mg Tab PO 650 mg Q4H PRN Administration Pain MILD(1-3)/Fever >100.5/MONTIEL Amlodipine Besylate 5 mg 04/23/21 10:00 04/28/21 10:34 Amlodipine 5 Mg Tab PO 5 mg DAILY LES Administration Aspirin 325 mg 04/23/21 10:00 04/28/21 10:34 Aspirin 325 Mg Tab PO 325 mg QDAY LES Administration Atorvastatin Calcium 80 mg 04/24/21 22:00 04/27/21 21:50 Atorvastatin 40 Mg Tab PO 80 mg QHS LES Administration Bisacodyl 10 mg 04/23/21 01:41 Bisacodyl 10 Mg Rect Supp NE QDAY PRN Constipation Clopidogrel Bisulfate 75 mg 04/23/21 14:30 04/28/21 10:34 Clopidogrel 75 Mg Tab PO 75 mg QDAY LES Administration Heparin Sodium (Porcine) 5,000 unit 04/23/21 06:00 04/28/21 14:22 Heparin 5,000 Unit/1 Ml Vial SUB-Q Not Given Q8HR [facility] Hydralazine HCl 10 mg 04/23/21 05:46 04/23/21 11:45 Hydralazine 20 Mg/1 Ml Inj IV 10 mg Q4HR PRN Administration Blood Pressure Labetalol HCl 200 mg 04/26/21 10:00 04/28/21 10:34 Labetalol 200 Mg Tab PO 200 mg BID LES Administration Magnesium Hydroxide 30 ml 04/23/21 01:41 Magnesium Hydroxide (Mom) Oral Liqd Udc PO Q4H PRN Constipation Metoclopramide HCl 10 mg 04/23/21 01:41 Metoclopramide 10 Mg Tab PO Q6H PRN Nausea And Vomiting Minoxidil 10 mg 04/23/21 10:00 04/28/21 10:34 Minoxidil 10 Mg Tab PO 10 mg BID LES Administration Morphine Sulfate 2 mg 04/23/21 01:41 04/24/21 22:31 Morphine 2 Mg/1 Ml Inj IV 2 mg Q4H PRN Administration Pain, Moderate (4-6) Morphine Sulfate 4 mg 04/23/21 01:41 04/24/21 10:33 Morphine 4 Mg/1 Ml Inj IV 4 mg Q4H PRN Administration Pain , Severe (7-10) Ondansetron HCl 4 mg 04/23/21 01:41 04/23/21 10:30 Ondansetron 4 Mg/2 Ml Inj IV 4 mg Q8H PRN Administration Nausea And Vomiting Promethazine HCl 25 mg 04/23/21 01:41 Promethazine 25 Mg Rect Supp NE Q6H PRN Nausea And Vomiting Sodium Chloride 10 ml 04/23/21 10:00 04/28/21 10:34 Sodium Chloride 0.9% 10 Ml Flush Syringe IV 10 ml BID LES Administration Sodium Chloride 10 ml 04/23/21 01:41 Sodium Chloride 0.9% 10 Ml Flush Syringe IV PRN PRN LINE FLUSH Nutrition/Malnutrition Assess - Dietary Evaluation Nutrition/Malnutrition Findings: Nutrition Notes Start: 04/23/21 11:34 Freq: Status: Active Protocol: Document 04/27/21 15:54 CW (Rec: 04/27/21 15:56 CW [id number]) Nutrition Notes Initial or Follow up Brief Note Current Diagnosis Hypertension,Stroke Other Pertinent Diagnosis medication noncompliance Current Diet cardiac Height 6 ft 2 in Weight 72.5 kg [place] Body Weight (kg) 86.36 BMI 20.5 Subjective/Other Information Provided pt with education related to heart healthy. Pt reports understanding. All questions answered. Nutrition Intervention Teaching Recipient Patient Learning Readiness Good Teaching Methods Discussion Response to Teaching Verbalize understanding Barriers to Learning No Barriers RD phone number provided Yes Patient aware of follow up options Yes Anticipated Discharge Needs: Cardiac, Low Fat Diet Revisit per MD consult or patient Sign Off request: Additional Comments S/O for diet education provided
[2021-04-29 05:57] LABS: BUN/Creatinine Ratio 25; Blood Urea Nitrogen 35 mg/dL (9-20); Hemolysis Index 9
[2021-04-29] MEDS: HEPARIN 5,000 UNIT/1 ML VIAL SUB-Q SCH ×3 (06:37→22:28)
[2021-04-29] MEDS: amLODIPine 5 MG TAB PO SCH (10:42)
[2021-04-29] MEDS: ASPIRIN 325 MG TAB PO SCH (10:42)
[2021-04-29] MEDS: MINOXIDIL 10 MG TAB PO SCH ×2 (10:43→22:34)
[2021-04-29] MEDS: CLOPIDOGREL 75 MG TAB PO SCH (10:43)
--- NOTE | 2021-04-29 11:31 | Progress Note ---
Assessment and Plan Assessment and plan: Acute CVA. Accelerated hypertension. Medical noncompliance 04/24/2021. CT brain is remarkable for angiopathic changes but nonspecific. MRI is suggestive of right pontine infarct with possibility of basilar artery thrombus. Continue Lipitor, aspirin and Plavix per neurology recommendations. Echocardiogram and CTA brain is pending. Await PT/OT/ST evaluations. 04/25/2021. Echocardiogram reveals left ventricular normal size and function. Severe concentric left ventricular hypertrophy. EF 65 to 70%. No reports of thrombus. CTA of head and neck essentially negative. Continue Lipitor, aspirin and Plavix per neurology recommendations. Physical therapy recommends acute rehab 04/26/2021. Continue Lipitor, aspirin and Plavix per neurology recommendations. Physical therapy recommends acute rehab. Await placement. Add labetalol for blood pressure control. 04/27/2021. Blood pressure much better controlled with addition of labetalol. Continue Lipitor, aspirin and Plavix per neurology recommendations. Physical therapy recommends acute rehab. Await placement. 04/28/21 Patient with acute stroke. Awaiting placement. 04/29/21 Patient with acute stroke. has ALESSIO with Cr 1.4 today. Start NS and repeat BMP in am. He was awaiting Acute Rehab placement. History Interval history: Left sided weakness Hospitalist Physical - Physical exam Narrative exam: Gen:Not in acute distress, lying in bed HEENT:Normocephalic, atraumatic Neck:supple, no JVD Lungs: clear to auscultation bilaterally, no wheeze Heart:S1 and S2 reg, no murmurs, rubs or gallop Abd:Soft, non tender, non distended, normal bowel sounds Ext:No edema. no clubbing, no cyanosis Neuro:Awake, alert, oriented X 3, left hemiparesis - Constitutional Vitals: Temp Pulse Resp BP Pulse Ox 98.2 F 86 16 115/58 98 04/29/21 03:35 04/29/21 08:47 04/29/21 03:35 04/29/21 03:35 04/29/21 08:47 General appearance: Present: no acute distress, well-nourished HEART Score - HEART Score Troponin: Troponin T < 0.010 ng/mL (0.00-0.029) 04/22/21 18:01 Results - Labs CBC & Chem 7: 04/24/21 04:31 04/29/21 05:06 Labs: Laboratory Last Values WBC 7.1 K/mm3 (4.5-11.0) 04/24/21 04:31 RBC 5.32 M/mm3 (3.65-5.03) H 04/24/21 04:31 Hgb 16.2 gm/dl (11.8-15.2) H 04/24/21 04:31 Hct 47.4 % (35.5-45.6) H 04/24/21 04:31 MCV 89 fl (84-94) 04/24/21 04:31 MCH 30 pg (28-32) 04/24/21 04:31 MCHC 34 % (32-34) 04/24/21 04:31 RDW 14.4 % (13.2-15.2) 04/24/21 04:31 Plt Count 185 K/mm3 (140-440) 04/24/21 04:31 Lymph % (Auto) 22.1 % (13.4-35.0) 04/24/21 04:31 [place] % (Auto) 8.7 % (0.0-7.3) H 04/24/21 04:31 Eos % (Auto) 0.2 % (0.0-4.3) 04/24/21 04:31 Baso % (Auto) 0.2 % (0.0-1.8) 04/24/21 04:31 Lymph # (Auto) 1.6 K/mm3 (1.2-5.4) 04/24/21 04:31 [place] # (Auto) 0.6 K/mm3 (0.0-0.8) 04/24/21 04:31 Eos # (Auto) 0.0 K/mm3 (0.0-0.4) 04/24/21 04:31 Baso # (Auto) 0.0 K/mm3 (0.0-0.1) 04/24/21 04:31 Seg Neutrophils % 68.8 % (40.0-70.0) 04/24/21 04:31 Seg Neutrophils # 4.9 K/mm3 (1.8-7.7) 04/24/21 04:31 PT 13.3 Sec. (12.2-14.9) 04/24/21 04:31 INR 0.96 (0.87-1.13) 04/24/21 04:31 APTT 29.1 Sec. (24.2-36.6) 04/22/21 18:01 Thrombin Time 18.4 Sec. (15.1-19.6) 04/22/21 18:01 Sodium 136 mmol/L (137-145) L 04/29/21 05:06 Potassium 3.5 mmol/L (3.6-5.0) L 04/29/21 05:06 Chloride 99.2 mmol/L (98-107) 04/29/21 05:06 Carbon Dioxide 28 mmol/L (22-30) 04/29/21 05:06 Anion Gap 12 mmol/L 04/29/21 05:06 BUN 35 mg/dL (9-20) H 04/29/21 05:06 Creatinine 1.4 mg/dL (0.8-1.3) H 04/29/21 05:06 Estimated GFR > 60 ml/min 04/29/21 05:06 BUN/Creatinine Ratio 25 % 04/29/21 05:06 Glucose 108 mg/dL (75-100) H 04/29/21 05:06 POC Glucose 93 mg/dL (70-105) 04/25/21 15:41 Calcium 9.0 mg/dL (8.4-10.2) 04/29/21 05:06 Total Bilirubin 1.00 mg/dL (0.1-1.2) 04/22/21 18:01 AST 17 units/L (5-40) 04/22/21 18:01 ALT 14 units/L (7-56) 04/22/21 18:01 Alkaline Phosphatase 72 units/L (35-129) 04/22/21 18:01 Total Creatine Kinase 99 units/L (55-170) 04/22/21 18:01 CK-MB (CK-2) 5.4 ng/mL (0.0-4.0) H 04/22/21 18:01 CK-MB (CK-2) Rel Index 5.4 (0-4) H 04/22/21 18:01 Troponin T < 0.010 ng/mL (0.00-0.029) 04/22/21 18:01 Total Protein 7.3 g/dL (6.3-8.2) 04/22/21 18:01 Albumin 4.4 g/dL (3.9-5) 04/22/21 18:01 Albumin/Globulin Ratio 1.5 % 04/22/21 18:01 Triglycerides 157 mg/dL (2-149) H 04/22/21 18:01 Cholesterol 227 mg/dL (50-199) H 04/22/21 18:01 LDL Cholesterol Direct 156 mg/dL (50-130) H 04/22/21 18:01 HDL Cholesterol 60 mg/dL (40-59) H 04/22/21 18:01 Cholesterol/HDL Ratio 3.78 % 04/22/21 18:01 Urine Color Yellow (Yellow) 04/24/21 12:01 Urine Turbidity Clear (Clear) 04/24/21 12:01 Urine pH 5.0 (5.0-7.0) 04/24/21 12:01 Ur Specific [place] 1.033 (1.003-1.030) H 04/24/21 12:01 Urine Protein 30 mg/dl mg/dL (Negative) 04/24/21 12:01 Urine Glucose (UA) Neg mg/dL (Negative) 04/24/21 12:01 Urine Ketones Tr mg/dL (Negative) 04/24/21 12:01 Urine Blood Neg (Negative) 04/24/21 12:01 Urine Nitrite Neg (Negative) 04/24/21 12:01 Urine Bilirubin Neg (Negative) 04/24/21 12:01 Urine Urobilinogen < 2.0 mg/dL (<2.0) 04/24/21 12:01 Ur Leukocyte Esterase Neg (Negative) 04/24/21 12:01 Urine WBC (Auto) 2.0 /HPF (0.0-6.0) 04/24/21 12:01 Urine RBC (Auto) 2.0 /HPF (0.0-6.0) 04/24/21 12:01 U Epithel Cells (Auto) < 1.0 /HPF (0-13.0) 04/24/21 12:01 Urine Mucus 2+ /HPF 04/24/21 12:01 Johansen/IV: Voiding Method Urinal Active Medications - Current Medications Current Medications: Generic Name Dose Route Start Last Admin Trade Name Dawitq PRN Reason Stop Dose Admin Acetaminophen 650 mg 04/23/21 01:41 04/28/21 10:34 Acetaminophen 325 Mg Tab PO 650 mg Q4H PRN Administration Pain MILD(1-3)/Fever >100.5/MONTIEL Amlodipine Besylate 5 mg 04/23/21 10:00 04/29/21 10:42 Amlodipine 5 Mg Tab PO 5 mg DAILY LES Administration Aspirin 325 mg 04/23/21 10:00 04/29/21 10:42 Aspirin 325 Mg Tab PO 325 mg QDAY LES Administration Atorvastatin Calcium 80 mg 04/24/21 22:00 04/28/21 23:50 Atorvastatin 40 Mg Tab PO 80 mg QHS LES Administration Bisacodyl 10 mg 04/23/21 01:41 Bisacodyl 10 Mg Rect Supp ME QDAY PRN Constipation Clopidogrel Bisulfate 75 mg 04/23/21 14:30 04/29/21 10:43 Clopidogrel 75 Mg Tab PO 75 mg QDAY LES Administration Heparin Sodium (Porcine) 5,000 unit 04/23/21 06:00 04/29/21 06:37 Heparin 5,000 Unit/1 Ml Vial SUB-Q 5,000 unit Q8HR LES Administration Hydralazine HCl 10 mg 04/23/21 05:46 04/23/21 11:45 Hydralazine 20 Mg/1 Ml Inj IV 10 mg Q4HR PRN Administration Blood Pressure Sodium Chloride 1,000 mls @ 100 mls/hr 04/29/21 08:00 Nacl 0.9% 1000 Ml IV DIRECT LES Labetalol HCl 200 mg 04/26/21 10:00 04/29/21 10:42 Labetalol 200 Mg Tab PO 200 mg BID LES Administration Magnesium Hydroxide 30 ml 04/23/21 01:41 Magnesium Hydroxide (Mom) Oral Liqd Udc PO Q4H PRN Constipation Metoclopramide HCl 10 mg 04/23/21 01:41 Metoclopramide 10 Mg Tab PO Q6H PRN Nausea And Vomiting Minoxidil 10 mg 04/23/21 10:00 04/29/21 10:43 Minoxidil 10 Mg Tab PO 10 mg BID LES Administration Morphine Sulfate 2 mg 04/23/21 01:41 04/24/21 22:31 Morphine 2 Mg/1 Ml Inj IV 2 mg Q4H PRN Administration Pain, Moderate (4-6) Morphine Sulfate 4 mg 04/23/21 01:41 04/24/21 10:33 Morphine 4 Mg/1 Ml Inj IV 4 mg Q4H PRN Administration Pain , Severe (7-10) Ondansetron HCl 4 mg 04/23/21 01:41 04/23/21 10:30 Ondansetron 4 Mg/2 Ml Inj IV 4 mg Q8H PRN Administration Nausea And Vomiting Promethazine HCl 25 mg 04/23/21 01:41 Promethazine 25 Mg Rect Supp ME Q6H PRN Nausea And Vomiting Sodium Chloride 10 ml 04/23/21 10:00 04/29/21 10:43 Sodium Chloride 0.9% 10 Ml Flush Syringe IV 10 ml BID LES Administration Sodium Chloride 10 ml 04/23/21 01:41 Sodium Chloride 0.9% 10 Ml Flush Syringe IV PRN PRN LINE FLUSH Nutrition/Malnutrition Assess - Dietary Evaluation Nutrition/Malnutrition Findings: Nutrition Notes Start: 04/23/21 11:34 Freq: Status: Active Protocol: Document 04/27/21 15:54 CW (Rec: 04/27/21 15:56 CW [id number]) Nutrition Notes Initial or Follow up Brief Note Current Diagnosis Hypertension,Stroke Other Pertinent Diagnosis medication noncompliance Current Diet cardiac Height 6 ft 2 in Weight 72.5 kg [place] Body Weight (kg) 86.36 BMI 20.5 Subjective/Other Information Provided pt with education related to heart healthy. Pt reports understanding. All questions answered. Nutrition Intervention Teaching Recipient Patient Learning Readiness Good Teaching Methods Discussion Response to Teaching Verbalize understanding Barriers to Learning No Barriers RD phone number provided Yes Patient aware of follow up options Yes Anticipated Discharge Needs: Cardiac, Low Fat Diet Revisit per MD consult or patient Sign Off request: Additional Comments S/O for diet education provided
[2021-04-29] MEDS: MORPHINE 2 MG/1 ML INJ IV PRN (22:27)
[2021-04-30 05:07] LABS: BUN/Creatinine Ratio 23; Blood Urea Nitrogen 30 mg/dL (9-20); Calcium 8.9 mg/dL (8.4-10.2); Hemolysis Index 4
[2021-04-30] MEDS: HEPARIN 5,000 UNIT/1 ML VIAL SUB-Q SCH ×3 (06:48→21:59)
[2021-04-30] MEDS: amLODIPine 5 MG TAB PO SCH (10:11)
[2021-04-30] MEDS: CLOPIDOGREL 75 MG TAB PO SCH (10:11)
[2021-04-30] MEDS: POTASSIUM CHLORIDE ER 20 MEQ TAB PO SCH ×2 (10:11→14:32)
[2021-04-30] MEDS: MINOXIDIL 10 MG TAB PO SCH ×2 (10:12→21:59)
[2021-04-30] MEDS: ASPIRIN 325 MG TAB PO SCH (10:12)
[2021-04-30] MEDS: SODIUM CHLORIDE 0.9% 1000 ML 1,000 ML IV SCH ×2 (11:06→21:59)
--- NOTE | 2021-04-30 11:52 | Progress Note ---
Assessment and Plan Assessment and plan: Acute CVA. Accelerated hypertension. Medical noncompliance 04/24/2021. CT brain is remarkable for angiopathic changes but nonspecific. MRI is suggestive of right pontine infarct with possibility of basilar artery thrombus. Continue Lipitor, aspirin and Plavix per neurology recommendations. Echocardiogram and CTA brain is pending. Await PT/OT/ST evaluations. 04/25/2021. Echocardiogram reveals left ventricular normal size and function. Severe concentric left ventricular hypertrophy. EF 65 to 70%. No reports of thrombus. CTA of head and neck essentially negative. Continue Lipitor, aspirin and Plavix per neurology recommendations. Physical therapy recommends acute rehab 04/26/2021. Continue Lipitor, aspirin and Plavix per neurology recommendations. Physical therapy recommends acute rehab. Await placement. Add labetalol for blood pressure control. 04/27/2021. Blood pressure much better controlled with addition of labetalol. Continue Lipitor, aspirin and Plavix per neurology recommendations. Physical therapy recommends acute rehab. Await placement. 04/28/21 Patient with acute stroke. Awaiting placement. 04/29/21 Patient with acute stroke. has ALESSIO with Cr 1.4 today. Start NS and repeat BMP in am. He was awaiting Acute Rehab placement. 04/30/21 Patient with acute stroke. Patient has ALESSIO with Cr 1.3 today. Ordered ivf NS yesterday but was not given . I have discussed with Nurse today to start iv fluid and repeat BMP in am. He is awaiting Acute Rehab placement. History Interval history: Left sided weakness Hospitalist Physical - Physical exam Narrative exam: Gen:Not in acute distress, lying in bed HEENT:Normocephalic, atraumatic Neck:supple, no JVD Lungs: clear to auscultation bilaterally, no wheeze Heart:S1 and S2 reg, no murmurs, rubs or gallop Abd:Soft, non tender, non distended, normal bowel sounds Ext:No edema. no clubbing, no cyanosis Neuro:Awake, alert, oriented X 3, left hemiparesis - Constitutional Vitals: Temp Pulse Resp BP Pulse Ox 98.0 F 84 20 109/70 96 04/30/21 07:38 04/30/21 10:11 04/30/21 07:38 04/30/21 10:11 04/30/21 08:00 General appearance: Present: no acute distress, well-nourished HEART Score - HEART Score Troponin: Troponin T < 0.010 ng/mL (0.00-0.029) 04/22/21 18:01 Results - Labs CBC & Chem 7: 04/24/21 04:31 04/30/21 04:19 Labs: Laboratory Last Values WBC 7.1 K/mm3 (4.5-11.0) 04/24/21 04:31 RBC 5.32 M/mm3 (3.65-5.03) H 04/24/21 04:31 Hgb 16.2 gm/dl (11.8-15.2) H 04/24/21 04:31 Hct 47.4 % (35.5-45.6) H 04/24/21 04:31 MCV 89 fl (84-94) 04/24/21 04:31 MCH 30 pg (28-32) 04/24/21 04:31 MCHC 34 % (32-34) 04/24/21 04:31 RDW 14.4 % (13.2-15.2) 04/24/21 04:31 Plt Count 185 K/mm3 (140-440) 04/24/21 04:31 Lymph % (Auto) 22.1 % (13.4-35.0) 04/24/21 04:31 [place] % (Auto) 8.7 % (0.0-7.3) H 04/24/21 04:31 Eos % (Auto) 0.2 % (0.0-4.3) 04/24/21 04:31 Baso % (Auto) 0.2 % (0.0-1.8) 04/24/21 04:31 Lymph # (Auto) 1.6 K/mm3 (1.2-5.4) 04/24/21 04:31 [place] # (Auto) 0.6 K/mm3 (0.0-0.8) 04/24/21 04:31 Eos # (Auto) 0.0 K/mm3 (0.0-0.4) 04/24/21 04:31 Baso # (Auto) 0.0 K/mm3 (0.0-0.1) 04/24/21 04:31 Seg Neutrophils % 68.8 % (40.0-70.0) 04/24/21 04:31 Seg Neutrophils # 4.9 K/mm3 (1.8-7.7) 04/24/21 04:31 PT 13.3 Sec. (12.2-14.9) 04/24/21 04:31 INR 0.96 (0.87-1.13) 04/24/21 04:31 APTT 29.1 Sec. (24.2-36.6) 04/22/21 18:01 Thrombin Time 18.4 Sec. (15.1-19.6) 04/22/21 18:01 Sodium 138 mmol/L (137-145) 04/30/21 04:19 Potassium 3.5 mmol/L (3.6-5.0) L 04/30/21 04:19 Chloride 100.6 mmol/L (98-107) 04/30/21 04:19 Carbon Dioxide 29 mmol/L (22-30) 04/30/21 04:19 Anion Gap 12 mmol/L 04/30/21 04:19 BUN 30 mg/dL (9-20) H 04/30/21 04:19 Creatinine 1.3 mg/dL (0.8-1.3) 04/30/21 04:19 Estimated GFR > 60 ml/min 04/30/21 04:19 BUN/Creatinine Ratio 23 % 04/30/21 04:19 Glucose 88 mg/dL (75-100) 04/30/21 04:19 POC Glucose 93 mg/dL (70-105) 04/25/21 15:41 Calcium 8.9 mg/dL (8.4-10.2) 04/30/21 04:19 Phosphorus 3.90 mg/dL (2.5-4.5) 04/30/21 04:19 Magnesium 2.20 mg/dL (1.7-2.3) 04/30/21 04:19 Total Bilirubin 1.00 mg/dL (0.1-1.2) 04/22/21 18:01 AST 17 units/L (5-40) 04/22/21 18:01 ALT 14 units/L (7-56) 04/22/21 18:01 Alkaline Phosphatase 72 units/L (35-129) 04/22/21 18:01 Total Creatine Kinase 99 units/L (55-170) 04/22/21 18:01 CK-MB (CK-2) 5.4 ng/mL (0.0-4.0) H 04/22/21 18:01 CK-MB (CK-2) Rel Index 5.4 (0-4) H 04/22/21 18:01 Troponin T < 0.010 ng/mL (0.00-0.029) 04/22/21 18: Total Protein 7.3 g/dL (6.3-8.2) 04/22/21 18: Albumin 4.4 g/dL (3.9-5) 04/22/21 18: Albumin/Globulin Ratio 1.5 % 04/22/21 18:01 Triglycerides 157 mg/dL (2-149) H 04/22/21 18: Cholesterol 227 mg/dL (50-199) H 04/22/21 18:01 LDL Cholesterol Direct 156 mg/dL (50-130) H 04/22/21 18: HDL Cholesterol 60 mg/dL (40-59) H 04/22/21 18: Cholesterol/HDL Ratio 3.78 % 04/22/21 18:01 Urine Color Yellow (Yellow) 04/24/21 12:01 Urine Turbidity Clear (Clear) 04/24/21 12:01 Urine pH 5.0 (5.0-7.0) 04/24/21 12:01 Ur Specific [place] 1.033 (1.003-1.030) H 04/24/21 12:01 Urine Protein 30 mg/dl mg/dL (Negative) 04/24/21 12:01 Urine Glucose (UA) Neg mg/dL (Negative) 04/24/21 12:01 Urine Ketones Tr mg/dL (Negative) 04/24/21 12:01 Urine Blood Neg (Negative) 04/24/21 12:01 Urine Nitrite Neg (Negative) 04/24/21 12:01 Urine Bilirubin Neg (Negative) 04/24/21 12:01 Urine Urobilinogen < 2.0 mg/dL (<2.0) 04/24/21 12:01 Ur Leukocyte Esterase Neg (Negative) 04/24/21 12:01 Urine WBC (Auto) 2.0 /HPF (0.0-6.0) 04/24/21 12:01 Urine RBC (Auto) 2.0 /HPF (0.0-6.0) 04/24/21 12:01 U Epithel Cells (Auto) < 1.0 /HPF (0-13.0) 04/24/21 12:01 Urine Mucus 2+ /HPF 04/24/21 12:01 Coronavirus (PCR) Negative (Negative) 04/29/21 10:41 Johansen/IV: Voiding Method Urinal Active Medications - Current Medications Current Medications: Generic Name Dose Route Start Last Admin Trade Name Freq PRN Reason Stop Dose Admin Acetaminophen 650 mg 04/23/21 01:41 04/28/21 10:34 Acetaminophen 325 Mg Tab PO 650 mg Q4H PRN Administration Pain MILD(1-3)/Fever >100.5/MONTIEL Amlodipine Besylate 5 mg 04/23/21 10:00 04/30/21 10:11 Amlodipine 5 Mg Tab PO 5 mg DAILY LES Administration Aspirin 325 mg 04/23/21 10:00 04/30/21 10:12 Aspirin 325 Mg Tab PO 325 mg QDAY LES Administration Atorvastatin Calcium 80 mg 04/24/21 22:00 04/29/21 22:28 Atorvastatin 40 Mg Tab PO 80 mg QHS LES Administration Bisacodyl 10 mg 04/23/21 01:41 Bisacodyl 10 Mg Rect Supp [place] QDAY PRN Constipation Clopidogrel Bisulfate 75 mg 04/23/21 14:30 04/30/21 10:11 Clopidogrel 75 Mg Tab PO 75 mg QDAY LES Administration Heparin Sodium (Porcine) 5,000 unit 04/23/21 06:00 04/30/21 06:48 Heparin 5,000 Unit/1 Ml Vial SUB-Q 5,000 unit Q8HR LES Administration Hydralazine HCl 10 mg 04/23/21 05:46 04/23/21 11:45 Hydralazine 20 Mg/1 Ml Inj IV 10 mg Q4HR PRN Administration Blood Pressure Sodium Chloride 1,000 mls @ 100 mls/hr 04/29/21 08:00 04/30/21 11:06 Nacl 0.9% 1000 Ml IV 100 mls/hr DIRECT LES Administration Labetalol HCl 200 mg 04/26/21 10:00 04/30/21 10:11 Labetalol 200 Mg Tab PO 200 mg BID LES Administration Magnesium Hydroxide 30 ml 04/23/21 01:41 Magnesium Hydroxide (Mom) Oral Liqd Udc PO Q4H PRN Constipation Metoclopramide HCl 10 mg 04/23/21 01:41 Metoclopramide 10 Mg Tab PO Q6H PRN Nausea And Vomiting Minoxidil 10 mg 04/23/21 10:00 04/30/21 10:12 Minoxidil 10 Mg Tab PO 10 mg BID LES Administration Morphine Sulfate 2 mg 04/23/21 01:41 04/29/21 22:27 Morphine 2 Mg/1 Ml Inj IV 2 mg Q4H PRN Administration Pain, Moderate (4-6) Morphine Sulfate 4 mg 04/23/21 01:41 04/24/21 10:33 Morphine 4 Mg/1 Ml Inj IV 4 mg Q4H PRN Administration Pain , Severe (7-10) Ondansetron HCl 4 mg 04/23/21 01:41 04/23/21 10:30 Ondansetron 4 Mg/2 Ml Inj IV 4 mg Q8H PRN Administration Nausea And Vomiting Potassium Chloride 40 meq 04/30/21 09:00 04/30/21 10:11 Potassium Chloride Er 20 Meq Tab PO 04/30/21 15:01 40 meq Q6H LES Administration Promethazine HCl 25 mg 04/23/21 01:41 Promethazine 25 Mg Rect Supp [place] Q6H PRN Nausea And Vomiting Sodium Chloride 10 ml 04/23/21 10:00 04/30/21 10:12 Sodium Chloride 0.9% 10 Ml Flush Syringe IV 10 ml BID LES Administration Sodium Chloride 10 ml 04/23/21 01:41 Sodium Chloride 0.9% 10 Ml Flush Syringe IV PRN PRN LINE FLUSH Nutrition/Malnutrition Assess - Dietary Evaluation Nutrition/Malnutrition Findings: Nutrition Notes Start: 04/23/21 11:34 Freq: Status: Active Protocol: Document 04/27/21 15:54 CW (Rec: 04/27/21 15:56 CW [id number]) Nutrition Notes Initial or Follow up Brief Note Current Diagnosis Hypertension,Stroke Other Pertinent Diagnosis medication noncompliance Current Diet cardiac Height 6 ft 2 in Weight 72.5 kg [place] Body Weight (kg) 86.36 BMI 20.5 Subjective/Other Information Provided pt with education related to heart healthy. Pt reports understanding. All questions answered. Nutrition Intervention Teaching Recipient Patient Learning Readiness Good Teaching Methods Discussion Response to Teaching Verbalize understanding Barriers to Learning No Barriers RD phone number provided Yes Patient aware of follow up options Yes Anticipated Discharge Needs: Cardiac, Low Fat Diet Revisit per MD consult or patient Sign Off request: Additional Comments S/O for diet education provided
[2021-05-01 05:18] LABS: BUN/Creatinine Ratio 22; Blood Urea Nitrogen 26 mg/dL (9-20); Calcium 8.4 mg/dL (8.4-10.2); Hemolysis Index 5
[2021-05-01] MEDS: HEPARIN 5,000 UNIT/1 ML VIAL SUB-Q SCH (06:01)
[2021-05-01] MEDS: ASPIRIN 325 MG TAB PO SCH (10:03)
[2021-05-01] MEDS: CLOPIDOGREL 75 MG TAB PO SCH (10:03)
[2021-05-01] MEDS: amLODIPine 5 MG TAB PO SCH (10:03)
[2021-05-01] MEDS: MINOXIDIL 10 MG TAB PO SCH (10:04)
--- NOTE | 2021-05-01 12:40 | Discharge Summary ---
Providers - Providers Date of Admission: 04/23/21 02:24 Date of discharge: 05/01/21 Attending physician: ERICK SCHULER 04/23/21 01:41 Consult to Dietitian/Nutrition [CONS] Routine Physician Instructions: Reason For Exam: Reason for Consult: Nutrition Recommendations Reason for Consult: Diet education Consult to Physician [CONS] Routine Comment: Consulting Provider: SOBIA MARROQUIN Physician Instructions: Reason For Exam: LEFT ARM WEAKNESS, R/O CVA Occupational Therapy Evaluate and Treat [CONS] Routine Comment: Reason For Exam: Neuro deficits Physical Therapy Evaluation and Treat [CONS] Routine Comment: Reason For Exam: Neuro deficits 04/23/21 01:44 Speech Therapy Evaluation and Treat [CONS] Routine Reason For Exam: swallow eval Primary care physician: [employer] Hospitalization Condition: Stable Disposition: 03 GROUP HOME [facility] Final Discharge Diagnosis (Prints w/discharge instructions): 1.Acute ischemic stroke Core Measure Documentation - Palliative Care Palliative Care/ Comfort Measures: Not Applicable - Core Measures Any of the following diagnoses?: stroke - Stroke Discharge Requirements Statin for LDL = or >70 mg/dl on DC: Yes Anticoag for atrial fib/atrial flutter: Not Applicable Antithrombotic for ischemic stroke: Yes Exam - Constitutional Vitals: Temp Pulse Resp BP Pulse Ox 98.7 F 68 16 124/70 98 05/01/21 12:25 05/01/21 12:25 05/01/21 12:25 05/01/21 12:25 05/01/21 12:25 Plan Activity: advance as tolerated Diet: low fat, low cholesterol, low salt Plan of Treatment: 1.Follow up with Physician at Rehab in 2-3 days Follow up with: PRIMARY CARE, [Primary Care Provider] - 7 Days Prescriptions: Aspirin 325 mg PO QDAY #30 tablet labetaloL [Labetalol 200mg TAB] 200 mg PO BID #60 tablet AtorvaSTATin [Lipitor] 80 mg PO QHS #60 tablet
[2021-05-01 15:35] LABS: Hemoglobin 12.8 gm/dl (11.8-15.2); Mean Corpuscular HGB Conc 35 % (32-34); Mean Corpuscular Volume 88 fl (84-94); Platelet Count 158 K/mm3 (140-440); Red Cell Distribution Width 13.6 % (13.2-15.2)
[2021-05-01 19:08] VITALS: BP 110/68
== END 2021-05-01 19:10 | DRG 66 ==
LOC: ED 14:42 → 4A 04-23 02:24
PROVIDERS: ADMIT Internal Medicine Geriatric Medicine; ATTEND Internal Medicine
DX: I63.9 Cerebral infarction, unspecified (principal); I16.0 Hypertensive urgency; Z20.822 Contact with and (suspected) exposure to COVID-19; Z91.19 Patient's noncompliance with other medical treatment and regimen; I25.2 Old myocardial infarction
CPT/HCPCS: 36415; 70450; 70496; 70498; 70551; 71045; 80048; 80053; 80061; 81001; 82550; 82553; 82962; 83735; 84100; 84484; 85025; 85027; 85610; 85670; 85730; 93005; 93306; 93880; G0378; A9270-GY; J0360; J1644; J2270; J2405; J7030; Q9967; U0003